=== PATIENT | female | born 1990 | race Two or more races ===

== ENCOUNTER 2023-12-31 08:23 | Emergency (ER) | payer MEDICAID, OTHER ==
[~2023-12-31] VITALS: Ht 157.5 cm; Wt 83.2 kg
[2023-12-31 09:34] LABS: Urine Bacteria None Seen /hpf (None Seen)
[2023-12-31 09:37] LABS: Urine Blood 3+ /uL (Negative); Urine Clarity Clear (Clear); Urine Color Light-Yellow (Yellow); Urine Hyaline Cast FEW /lpf (0 - 2); Urine Mucus FEW (None Seen); Urine Protein, UAD Negative (Negative); Urine Urobilinogen Normal (Negative); Urine WBC 1 /hpf (0 - 5)
[2023-12-31 09:42] LABS: Basophils # (auto) 0.1 10 ^3/uL (0-0.2); Eosinophils # (auto) 0.6 10 ^3/uL (0-0.8); Monocytes # (auto) 0.4 10 ^3/uL (0-1.3)
[2023-12-31 09:44] LABS: Eosinophils % (auto) 6.5 % (0.0-7.0); Hematocrit 31.2 % (36.0-46.0); Hemoglobin 9.7 g/dL (12.2-16.2); Lymphocytes % (auto) 34.4 % (10.0-50.0); Mean Corpuscular Hemoglobin 19.3 pg (28.0-32.0); Mean Corpuscular Hgb Conc. 31.1 g/dL (32.0-36.0); Monocytes % (auto) 4.7 % (0.0-12.0); Neutrophils # (auto) 4.6 10 ^3/uL (1.6-8.6); Neutrophils % (auto) 53.4 % (37.0-80.0); Platelet Count (auto) 603 10^3/uL (140-450); Red Blood Cells 5.03 10^6/uL (4.0-5.20); Red Cell Distribution Width 17.6 % (11.8-14.3); White Blood Cell 8.6 10^3/uL (4.4-10.8)
[2023-12-31 09:52] LABS: Chloride 109 mmol/L (98-107); Potassium 4.1 mmol/L (3.5-5.1); Sodium 140 mmol/L (136-145)
[2023-12-31 09:53] LABS: Anion Gap 6 (5-15); Calcium 9.6 mg/dL (8.7-10.4); Carbon Dioxide 25 mmol/L (20-31)
[2023-12-31 09:58] LABS: BUN/Creatinine Ratio 10.9 (10.0-20.0); Blood Urea Nitrogen 7 mg/dL (9-23); Glucose 99 mg/dL (74-106)
[2023-12-31 09:59] LABS: Magnesium 2.2 mg/dL (1.6-2.6)
[2023-12-31 10:52] LABS: Platelet Estimate Increased
[2023-12-31 10:53] LABS: Hypochromia Marked
[2023-12-31 10:58] VITALS: PULSE 89; RESP 19; O2SAT 98
[2023-12-31 12:51] VITALS: BP 132/72; PULSE 80; RESP 17; TEMP 98.2; O2SAT 99
[2023-12-31] MEDS ORDERED: ACET-6 PO (12:59)
[2023-12-31] MEDS ORDERED: IBUP-1454 PO (12:59)
== END 2023-12-31 13:16 | disposition home or self-care (01) ==
LOC: ER 08:23
DX: B34.9 Viral infection, unspecified (principal); R10.2 Pelvic and perineal pain; M79.10 Myalgia, unspecified site; Z79.899 Other long term (current) drug therapy
CPT/HCPCS: 36415; 71046; 80048; 81001; 83735; 84702; 85025; 93005

== ENCOUNTER 2024-05-20 18:58 | Emergency (ER) | payer MEDICAID ==
[~2024-05-20] VITALS: Ht 165.1 cm; Wt 82.8 kg
[~2024-05-20 18:58] MED LIST: ACET-6 PO; IBUP-1454 PO
[2024-05-20 19:59] LABS: Hemoglobin 9.8 g/dL (12.2-16.2)
[2024-05-20 20:01] LABS: Basophils # (auto) 0.1 10 ^3/uL (0-0.2); Basophils % (auto) 0.9 % (0.0-2.0); Eosinophils # (auto) 0.8 10 ^3/uL (0-0.8); Eosinophils % (auto) 6.5 % (0.0-7.0); Hematocrit 31.7 % (36.0-46.0); Lymphocytes # (auto) 4.3 10 ^3/uL (0.4-5.4); Lymphocytes % (auto) 34.2 % (10.0-50.0); Mean Corpuscular Hgb Conc. 30.9 g/dL (32.0-36.0); Mean Corpuscular Volume 64.6 fL (80.0-100.0); Monocytes # (auto) 0.7 10 ^3/uL (0-1.3); Monocytes % (auto) 5.5 % (0.0-12.0); Neutrophils # (auto) 6.6 10 ^3/uL (1.6-8.6); Neutrophils % (auto) 52.9 % (37.0-80.0); Nucleated Red Blood Cells % 0.1 %; Platelet Count (auto) 551 10^3/uL (140-450); Red Blood Cells 4.91 10^6/uL (4.0-5.20); Red Cell Distribution Width 17.9 % (11.8-14.3); White Blood Cell 12.5 10^3/uL (4.4-10.8)
[2024-05-20 20:07] LABS: Potassium 3.6 mmol/L (3.5-5.1); Sodium 140 mmol/L (136-145)
[2024-05-20 20:08] LABS: Anion Gap 10 (5-15); Calcium 10.1 mg/dL (8.7-10.4); Carbon Dioxide 23 mmol/L (20-31); Chloride 107 mmol/L (98-107)
[2024-05-20 20:11] LABS: Urine Bacteria FEW /hpf (None Seen); Urine Blood Negative /uL (Negative); Urine Clarity Turbid (Clear); Urine Color Colorless (Yellow); Urine Protein, UAD Negative (Negative); Urine Squamous Epithelial Cell FEW /hpf (<5); Urine Urobilinogen Normal (Negative); Urine WBC 4 /HPF (0-5); Urine pH 6.5 (5.0-9.0)
[2024-05-20 20:13] LABS: BUN/Creatinine Ratio 12.3 (10.0-20.0)
[2024-05-20 20:15] LABS: Blood Urea Nitrogen 8 mg/dL (9-23); Glucose 114 mg/dL (74-106)
[2024-05-20] MEDS: SODIUM CHLORIDE 0.9% 1,000 ML IV ONE (20:21)
[2024-05-20] MEDS: MECLIZINE HCL 25 MG TAB PO ONE (20:26)
[2024-05-20 20:28] VITALS: BP 130/76; RESP 18; TEMP 99.3; O2SAT 97
[2024-05-20 20:37] VITALS: PULSE 88
[2024-05-20] MEDS ORDERED: MECL1TAB42 PO (20:37)
--- NOTE | 2024-05-20 20:37 | ED.PDOC ---
HPI (NEURO) HPI Comments 34-year-old female with no pertinent past medical history, presents to ED for dizziness x1 day, with no other associated symptoms. Patient denies any headache, nausea, vomiting, chest pain, shortness of breath, numbness, tingling. She states that the dizziness is intermittent and describes it as a spinning sensation. She states that it is triggered by certain movements. No alleviating or aggravating factors. Patient denies a history of same in the past. Last menstrual period ended 10 days ago. She denies being . Chief Complaint: Dizziness Time Seen by MD: 19:02 Reviewed Notes: Nurses Notes, Medications, Allergies Mode of Arrival: Ambulatory Past Medical History PAST MEDICAL HISTORY: Denies Surgical History: Unknown [employer] TECH[employer] History: Denies all [employer] Hx Family History Family History: Unknown Social History Smoker: Non-Smoker Alcohol: Denies ETOH Use Drugs: Denies Drug Use Constitutional: denies: chills, diaphoresis, fatigue, fever, malaise, sweats, weakness, others EENTM: denies: blurred vision, double vision, ear bleeding, ear discharge, ear drainage, ear pain, ear ringing, eye pain, eye redness, hearing loss, mouth pain, mouth swelling, nasal discharge, nose bleeding, nose congestion, nose pain, photophobia, tearing, throat pain, throat swelling, voice changes, others Respiratory: denies: cough, hemoptysis, orthopnea, SOB at rest, shortness of breath, SOB with excertion, stridor, wheezing, others Cardiovascular: denies: chest pain, dizzy spells, diaphoresis, Dyspnea on exertion, edema, irregular heart beat, left arm pain, lightheadedness, palpitations, PND, syncope, others Gastrointestinal: denies: abdomen distended, abdominal pain, blood streaked bowels, constipated, diarrhea, dysphagia, difficulty swallowing, hematemesis, melena, nausea, poor appetite, poor fluid intake, rectal bleeding, rectal pain, vomiting, others Genitourinary: denies: abnormal vagina bleeding, burning, dyspareunia, dysuria, flank pain, frequency, hematuria, incontinence, pain, , vagina discharge, urgency, others Neurological: reports: dizziness; denies: fainting, headache, left sided numbness, left sided weakness, numbness, paresthesia, pre-existing deficit, right sided numbness, right sided weakness, seizure, speech problems, tingling, tremors, weakness, others Musculoskeletal: denies: back pain, gout, joint pain, joint swelling, muscle pain, muscle stiffness, neck pain, others Integumetry: denies: bruises, change in color, change in hair/nails, dryness, laceration, lesions, lumps, rash, wounds, others Allergic/Immunocompromised: denies: Difficulty Healing, Frequent Infections, Hives, Itching, others Hematologic/Lymphatic: denies: anemia, blood clots, easy bleeding, easy bruising, swollen glands, others Endocrine: denies: excessive hunger, excessive sweating, excessive thirst, excessive urination, flushing, intolerance to cold, intolerance to heat, unexplained weight gain, unexplained weight loss, others Psychiatric: denies: anxiety, bipolar disorder, depression, hopeless, panic disorder, schizophrenia, sleepless, suicidal, others All Other Systems: Reviewed and Negative Physical Exam General Appearance: No Apparent Distress, Normal HEENT: Normal ENT Inspection, Pharynx Normal, TMs Normal Neck: Full Range of Motion, Non-Tender, Normal, Normal Inspection Respiratory: Chest Non-Tender, Lungs Clear, No Accessory Muscle Use, No Respiratory Distress, Normal Breath Sounds Cardiovascular: No Edema, No JVD, No Murmur, No Gallop, Normal Peripheral Pulses, Regular Rate/Rhythm Breast Exam: Deferred Gastrointestinal: No Organomegaly, Non Tender, No Pulsatile Mass, Normal Bowel Sounds, Soft Genitalia: Deferred Pelvic: Deferred Rectal: Deferred Extremities: No calf tenderness, Normal capillary refill, Normal inspection, Normal range of motion, Non-tender, No pedal edema Musculoskeletal : Apperance: Normal Neurologic: Alert, hospital receiving clerk II-XII nml as Tested, No Motor Deficits, Normal Affect, Normal Mood, No Sensory Deficits, Other (5/5 strength in bilateral upper and lower extremities. Negative facial droop, negative pronator drift.) Cerebellar Function: Normal Reflexes: Normal Skin: Dry, Normal Color, Warm Lymphatic: No Adenopathy EKG EKG : Pulse Rate (adult): 88 [place]: Normal Cardiac Rhythm: NSR Block: None Hypertrophy: None ST: Normal Was a procedure done? Was a procedure done?: No Differential Diagnosis (SZ) Seizure: Closed Head Injury, CVA/TIA, Drug Ingestion, Syncope, Encephalopathy CVA: Electrolyte Imbalance General Weakness: CVA, Vertigo: central, Vertigo: peripheral, Vestibular neuronitis X-Ray, Labs, Meds, VS Vital Signs Date Time Temp Pulse Resp B/P (MAP) Pulse Ox O2 Delivery O2 Flow Rate FiO2 05/20/24 20:37 88 05/20/24 20:28 86 18 97 Room Air 05/20/24 20:28 99.3 86 18 130/76 (94) 97 99.3 05/20/24 19:44 88 05/20/24 19:41 98.0 93 16 148/93 (111) 100 98.0 Lab Test 05/20/24 19:58 05/20/24 19:49 Range/Units Urine Color Colorless Yellow Urine Clarity Turbid H Clear Urine pH 6.5 5.0-9.0 Urine Specific [place] 1.010 1.001-1.035 Urine Protein Negative Negative Urine Ketones Negative Negative Urine Blood Negative Negative /uL Urine Nitrite Negative Negative Urine Bilirubin Negative Negative Urine Urobilinogen Normal Negative mg/dL Urine Leukocyte Esterase 1+ Negative /uL Urine RBC <1 0 - 4 /hpf Urine Microscopic WBC 4 0-5 /HPF Urine Squamous Epithelial Cells Few <5 /hpf Urine Bacteria Few H None Seen /hpf Urine Glucose Normal Normal mg/dL Urine Test Negative Negative White Blood Count 12.5 H 4.4-10.8 10^3/uL Red Blood Count 4.91 4.0-5.20 10^6/uL Hemoglobin 9.8 L 12.2-16.2 g/dL Hematocrit 31.7 L 36.0-46.0 % Mean Corpuscular Volume 64.6 L 80.0-100.0 fL Mean Corpuscular Hemoglobin 20.0 L 28.0-32.0 pg Mean Corpuscular Hemoglobin Concent 30.9 L 32.0-36.0 g/dL Red Cell Distribution Width 17.9 H 11.8-14.3 % Platelet Count 551 H 140-450 10^3/uL Mean Platelet Volume 8.0 6.9-10.8 fL Neutrophils (%) (Auto) 52.9 37.0-80.0 % Lymphocytes (%) (Auto) 34.2 10.0-50.0 % Monocytes (%) (Auto) 5.5 0.0-12.0 % Eosinophils (%) (Auto) 6.5 0.0-7.0 % Basophils (%) (Auto) 0.9 0.0-2.0 % Neutrophils # (Auto) 6.6 1.6-8.6 10 ^3/uL Lymphocytes # (Auto) 4.3 0.4-5.4 10 ^3/uL Monocytes # (Auto) 0.7 0-1.3 10 ^3/uL Eosinophils # (Auto) 0.8 0-0.8 10 ^3/uL Basophils # (Auto) 0.1 0-0.2 10 ^3/uL Nucleated Red Blood Cells 0.1 % Sodium Level 140 136-145 mmol/L Potassium Level 3.6 3.5-5.1 mmol/L Chloride Level 107 98-107 mmol/L Carbon Dioxide Level 23 20-31 mmol/L Anion Gap 10 5-15 Blood Urea Nitrogen 8 L 9-23 mg/dL Creatinine 0.65 0.550-1.02 mg/dL Glomerular Filtration Rate Calc 118 >90 mL/min BUN/Creatinine Ratio 12.3 10.0-20.0 Serum Glucose 114 H 74-106 mg/dL Calcium Level 10.1 8.7-10.4 mg/dL Current Medications Medications (Trade) Dose Ordered Sig/Devon Route Start Time Stop Time Status Last Admin Meclizine HCl (Antivert Tablet) 50 mg ONCE ONCE PO 05/20/24 19:45 05/20/24 19:46 DC 05/20/24 20:26 Sodium Chloride 1,000 ml @ 1,000 mls/hr Q1H ONCE IV 05/20/24 20:00 05/20/24 20:59 DC 05/20/24 20:21 X-Ray, Labs, Meds, VS Comment MDM: Patient with history as above presented with Dizziness. History obtained from patient. Patient was nontoxic, stable, afebrile, ambulatory, no acute distress. Exam as above. Labs reviewed.CBC showed mild leukocytosis of 12.5. Anemia was noted for hemoglobin at 9.8 and hematocrit at 31.7. BMP did not show any electrolyte abnormalities. Urinalysis was negative for acute infection. Urine test was negative. EKG was reviewed by me. Normal sinus rhythm at 88 beats per minute, no hypertrophy, no AV blocks, no ST-T wave abnormalities. Reviewed external records. All findings were discussed with the patient. Differential diagnosis considered. Overall presentation is consistent with nonspecific vertigo. Low suspicion for CVA, TIA, cardiac arrhythmia, meningitis. Patient was treated with meclizine and IV fluids with improvement in symptoms. Patient was reevaluated and vital signs were reviewed. Consideration was given for admission, but the patient was stable for outpatient management. Prescribed meclizine for outpatient treatment. Disposition: Discussed the need to follow up diagnostics, including incidental findings. Discharged the patient with instructions to obtain outpatient follow up in 1-2 days of today's symptoms and findings, with strict return precautions if patient develops new or worsening symptoms. This medical document was created using the [employer]ni[employer] system. Although this document has been carefully reviewed, there may still be some phonetic and typographical errors, which are due to imperfections of the software program, and do not reflect any compromise in the patient's medical care. Time of 1ST Reevaluation: 20:35 Reevaluation 1ST: Improved Patient Education/Counseling: Diagnosis, Treatment, Prognosis, Need For Follow Up Family Education/Counseling: No Family Present Departure 1 Departure Time of Disposition: 20:36 Impression: Primary Impression: Vertigo Additional Impression: Anemia Qualified Codes: D50.9 - Iron deficiency anemia, unspecified Disposition: HOME / SELF CARE / HOMELESS Condition: Fair Additional Instructions: You likely have benign vertigo. He also have iron-deficiency anemia. Please follow up with primary care provider for further evaluation. e-Prescriptions Meclizine HCl (Meclizine 25) 25 Mg Tab 25 MG PO DAILY, #30 TAB Prov: FAITH WATKINS 05/20/24 Critical Care Note Critical Care Time?: No Stability Stability form required: No Heart Score Heart Score: Heart Score Response (Comments) Value History N/A 0 EKG N/A 0 Age N/A 0 Risk Factors N/A 0 Troponin N/A 0 Total 0 FAITH WATKINS May 20, 2024 20:37
--- NOTE | 2024-05-21 10:20 | ECG ---
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
== END 2024-05-20 21:23 | disposition home or self-care (01) ==
LOC: ER 18:58
DX: D64.9 Anemia, unspecified (principal); R42 Dizziness and giddiness
CPT/HCPCS: 36415; 80048; 81001; 81025; 85025; 93005; 96360; 99284; J7030; J8597

== ENCOUNTER 2024-06-13 22:52 | Emergency (ER) | payer MEDICAID ==
[~2024-06-13] VITALS: Ht 165.1 cm; Wt 80.9 kg
[~2024-06-13 22:52] MED LIST changes: +MECL1TAB42 PO
--- NOTE | 2024-06-13 23:32 | ED.PDOC ---
General HPI Comments HPI: Poor Historian. 34-year-old female four weeks presents to the emergency department for evaluation of nonspecific low back pain for one day with the associated urinary frequency and urgency. Patient also reports having some nausea but no vomiting with yellow diarrhea for one day but her main complaint today is her low back pain with urinary symptoms. She says her back pain radiates to her legs. Denies cauda equina like symptoms. Denies any recent fall or trauma. Vital signs are stable in triage. Diarrhea for five days. When asked if she can give us a stool sample two days. She said she can not. Past Medical History: Denies any Past Surgical History: Two C sections REVIEW OF SYSTEMS: CONSTITUTIONAL: Denies acute: fever, diaphoresis, chills, generalized weakness. HEAD: Denies acute: headache, photophobia Eyes: Denies acute: Double vision, vision loss, eye pain, eye discharge. EARS: Denies acute: tinnitus, hearing loss, ear discharge, ear pain, THROAT: Denies acute: sore throat, swelling, difficulty swallowing , pain with swallowing, change in voice. NECK: Denies acute: neck pain, neck swelling, stiff neck. HEART: Denies acute : chest pain, palpitations, LUNGS: Denies acute: SOB, wheezing, cough, hemoptysis ABDOMEN: Denies acute: abdominal pain, vomiting, melena , hematemesis, hematochezia SKIN: Denies acute: rash, redness, lesions, itchiness. EXTREMITIES: Denies acute: calf pain, numbness, tingling, weakness, denies pain in extremity. Denies acute: Neuro: Denies acute: focal neurological deficit, motor or sensory focal neurological deficit, tremors, seizure like activity, confusion, dizziness, change in mental status, loss of bowel or bladder function, cauda equina like symptoms. : Denies acute: dysuria, hematuria, flank pain, PSYCH: Denies acute: hallucination, suicidal ideation, homicidal ideation. FEMALE: Denies acute: abnormal vaginal bleeding, foul odor, unusual discharge. PHYSICAL EXAM: General: ----mild----acute distress, awake and alert. Head: normocephalic, atraumatic. Neck: supple, trachea is midline, no swelling. Throat: Normal phonation. Eyes:, no erythema, no purulent discharge, no proptosis, no icterus. Heart: regular rate, regular rhythm, no significant murmur appreciated. Lungs: no apparent respiratory distress, Able to speak in full sentences. No wheezing, no rhonchi, no crackles. No stridors Clear to auscultation bilaterally. Abdomen: non tender to palpation, non distended, soft, no guarding, no rebound, + bowel sounds. Neuro: Awake, Alert, oriented to name, self, situation, follows commands GCS=15. Speech is normal. Skin: no petechia, no purpura, no cyanosis, non-pale, not jaundice. Lower extremities: --no - Pitting edema no deformity, no focal swelling, no calf TTP. Makes eye contact. moves all four extremities. Face: no apparent facial droop. No CVA tenderness to percussion bilaterally. Ambulating in the ED independently. No nystagmus. No nuchal rigidity, Kernig's sign, Brudzinski's sign, no meningeal signs. ED COURSE: Chief Complaint: Back Pain Time Seen by MD: 22:56 Reviewed notes: Nurses Notes, Allergies Allergies: Coded Allergies: NO KNOWN ALLERGIES (Unverified , 12/31/23) Home Meds Active Scripts Ondansetron Odt 4MG Tab (ZOFRAN PO) 4 Mg Tb, 4 MG PO Q8HPRN PRN for 3 Days, #9 TAB ODT TAB-DISSOLVE IN MOUTH, THEN SWALLOW Prov:MARJORIE HERNÁNDEZ DO 06/14/24 Cephalexin Monohydrate (Cephalexin) 500 Mg Tab, 1 TAB PO TID for 5 Days, #15 TAB Prov:MARJORIE HERNÁNDEZ DO 06/14/24 Meclizine HCl (Meclizine 25) 25 Mg Tab, 25 MG PO DAILY, #30 TAB Prov:FAITH WATKINS PAC 05/20/24 Ibuprofen (Ibuprofen) 600 Mg Tab, 1 TAB PO TID for 10 Days, #30 TAB Prov:BO JIANG MD 12/31/23 Acetaminophen (Acetaminophen Extra Stren) 500 Mg Tab, 500 MG PO TID PRN for 10 Days, #30 TAB Prov:BO JIANG MD 12/31/23 Information Source: Patient Mode of Arrival: Ambulatory Past Medical History PAST MEDICAL HISTORY: Denies Surgical History: Unknown PNEUMATIC PRESS HAND History: Denies all PNEUMATIC PRESS HAND Hx Family History Family History: Unknown Social History Smoker: Non-Smoker Alcohol: Denies ETOH Use Drugs: Denies Drug Use Was a procedure done? Was a procedure done?: No Differential Diagnosis Kidney stone (Female): Musculoskeletal pain, Pyelonephritis, Renal failure, Strain, Urinary obstruction, N/A X-Ray, Labs, Meds, VS Vital Signs Date Time Temp Pulse Resp B/P (MAP) Pulse Ox O2 Delivery O2 Flow Rate FiO2 06/14/24 02:11 98.1 84 17 120/76 (91) 99 98.1 06/14/24 02:11 84 17 99 Room Air 06/13/24 23:07 98.6 100 16 131/90 (104) 99 98.6 Lab Test 06/13/24 23:50 06/13/24 23:29 Range/Units White Blood Count 8.6 4.4-10.8 10^3/uL Red Blood Count 4.83 4.0-5.20 10^6/uL Hemoglobin 9.8 L 12.2-16.2 g/dL Hematocrit 31.4 L 36.0-46.0 % Mean Corpuscular Volume 65.0 L 80.0-100.0 fL Mean Corpuscular Hemoglobin 20.4 L 28.0-32.0 pg Mean Corpuscular Hemoglobin Concent 31.4 L 32.0-36.0 g/dL Red Cell Distribution Width 20.1 H 11.8-14.3 % Platelet Count 444 140-450 10^3/uL Mean Platelet Volume 7.9 6.9-10.8 fL Neutrophils (%) (Auto) 63.0 37.0-80.0 % Lymphocytes (%) (Auto) 23.8 10.0-50.0 % Monocytes (%) (Auto) 9.6 0.0-12.0 % Eosinophils (%) (Auto) 3.1 0.0-7.0 % Basophils (%) (Auto) 0.5 0.0-2.0 % Neutrophils # (Auto) 5.4 1.6-8.6 10 ^3/uL Lymphocytes # (Auto) 2.1 0.4-5.4 10 ^3/uL Monocytes # (Auto) 0.8 0-1.3 10 ^3/uL Eosinophils # (Auto) 0.3 0-0.8 10 ^3/uL Basophils # (Auto) 0 0-0.2 10 ^3/uL Nucleated Red Blood Cells 0.0 % Sodium Level 138 136-145 mmol/L Potassium Level 3.9 3.5-5.1 mmol/L Chloride Level 106 98-107 mmol/L Carbon Dioxide Level 22 20-31 mmol/L Anion Gap 10 5-15 Blood Urea Nitrogen 8 L 9-23 mg/dL Creatinine 0.63 0.550-1.02 mg/dL Glomerular Filtration Rate Calc 119 >90 mL/min BUN/Creatinine Ratio 12.7 10.0-20.0 Serum Glucose 99 74-106 mg/dL Lactic Acid Level 0.9 0.4-2.0 mmol/L Calcium Level 9.9 8.7-10.4 mg/dL Total Bilirubin 0.2 0.2-1.0 mg/dL Aspartate Amino Transferase (AST) 10 L 13-40 U/L Alanine Aminotransferase (ALT) 17 7-40 U/L Alkaline Phosphatase 63 46-116 U/L Total Protein 7.8 5.7-8.2 g/dL Albumin 5.0 H 3.2-4.8 g/dL Beta HCG, Quantitative 23093.2 H 1.5-4.2 mIU/mL Urine Color Colorless Yellow Urine Clarity Clear Clear Urine pH 5.0 5.0-9.0 Urine Specific [place] 1.008 1.001-1.035 Urine Protein Negative Negative Urine Ketones Negative Negative Urine Blood Negative Negative /uL Urine Nitrite Negative Negative Urine Bilirubin Negative Negative Urine Urobilinogen Normal Negative mg/dL Urine Leukocyte Esterase Negative Negative /uL Urine RBC <1 0 - 4 /hpf Urine Microscopic WBC 1 0-5 /HPF Urine Squamous Epithelial Cells Few <5 /hpf Urine Bacteria Few H None Seen /hpf Urine Glucose Normal Normal mg/dL Urine Opiates Screen Neg NEGATIVE Urine Fentanyl Screen Neg NEGATIVE Urine Barbiturates Screen Neg NEGATIVE Urine Phencyclidine Screen Neg NEGATIVE Urine Amphetamines Screen Neg NEGATIVE Urine Benzodiazepines Screen Neg NEGATIVE Urine Cocaine Screen Neg NEGATIVE Urine Cannabinoids Screen Neg NEGATIVE Current Medications Medications (Trade) Dose Ordered Sig/Devon Route Start Time Stop Time Status Last Admin Sodium Chloride 500 ml @ 500 mls/hr Q1H ONCE IV 4/16/25 23:30 06/14/24 00:29 DC 06/14/24 02:23 Acetaminophen/ Hydrocodone Bitart ([place] 5/325MG Tab) 1 tab ONCE ONCE PO 06/13/24 23:45 06/13/24 23:46 DC 06/14/24 02:24 Time of 1ST Reevaluation: 01:09 Reevaluation 1ST: Unchanged Time of 2ND Reevaluation: 02:34 Reevaluation 2ND: Improved Patient Education/Counseling: Diagnosis, Treatment Family Education/Counseling: No Family Present Comments Patient presented with the above HPI.--urinary symptoms and low back pain and diarrhea----workup was initiated. patient was found with the above mentioned diagnosis. the following medications were ordered: please refer to order lists of meds and tests obtained by myself Dr. Hernández. Patient ED course and VS have been stabilized. Patient has been reassessed in the ED and remained in a stable condition. Pertinent incidental findings were discussed with the patient and/or family. Patient/family voices understanding and is agreeable with plan. Patient has been observed in the ED adequate length of time to insure improvement/stability. Escalation of care considered: Consideration of escalation to observation or admission Patient was DISCHARGED home in a stable condition. All the reports of any imaging studies that were ordered by myself were reviewed by myself. Departure 1 Departure Time of Disposition: 01:07 Impression: Primary Impression: Bacteria in urine Additional Impressions: UTI in Diarrhea Anemia Disposition: 01 HOME / SELF CARE / HOMELESS Condition: Stable Additional Instructions: Additional instructions: You MUST follow-up with your primary care/family doctor in 1 to 2 days. If you are unable to see your primary care/family doctor, please return to our emergency room for re-assessment and re-evaluation in 1 to 2 days. Return to the emergency room here in our facility or to the nearest ER [facility] if your symptoms change or worsen. CONSULTATIONS: you MUST Follow-up for consultation as soon as possible with: Dr. STERLING Parisi doctor in 1-2 day history of please call for appointment. You MUST call the consultants office yourself to make an appointment. You may need to arrange that through your insurance and/or your primary/family doctor. If you are unable to see the [facility] consultant in 1 to 2 days, you must return to our emergency room (or any other ER of your choice) for re-assessment and re- evaluation. Adequate fluid hydration. Pelvic rest. Continue taking daily vitamins. Use Tylenol [id number] as instructed for pain control. Take iron supplements. Below is a copy of your radiological report for follow up: e-Prescriptions Ondansetron Odt 4MG Tab (ZOFRAN PO) 4 Mg Tb 4 MG PO Q8HPRN PRN for 3 Days, #9 TAB ODT TAB-DISSOLVE IN MOUTH, THEN SWALLOW Prov: MARJORIE HERNÁNDEZ DO 06/14/24 Cephalexin Monohydrate (Cephalexin) 500 Mg Tab 1 TAB PO TID for 5 Days, #15 TAB Prov: MARJORIE HERNÁNDEZ DO 06/14/24 Discharged With: Self Critical Care Note Critical Care Time?: No Heart Score Heart Score: Heart Score Response (Comments) Value History N/A 0 EKG N/A 0 Age N/A 0 Risk Factors N/A 0 Troponin N/A 0 Total 0 MARJORIE HERNÁNDEZ DO Jun 13, 2024 23:32
[2024-06-13 23:52] LABS: Urine Bacteria FEW /hpf (None Seen); Urine Blood Negative /uL (Negative); Urine Clarity Clear (Clear); Urine Color Colorless (Yellow); Urine Protein, UAD Negative (Negative); Urine Specific Gravity 1.008 (1.001-1.035); Urine Squamous Epithelial Cell FEW /hpf (<5); Urine Urobilinogen Normal (Negative); Urine WBC 1 /HPF (0-5)
[2024-06-14 00:01] LABS: Basophils # (auto) 0 10 ^3/uL (0-0.2); Basophils % (auto) 0.5 % (0.0-2.0); Eosinophils # (auto) 0.3 10 ^3/uL (0-0.8); Monocytes # (auto) 0.8 10 ^3/uL (0-1.3)
[2024-06-14 00:02] LABS: Eosinophils % (auto) 3.1 % (0.0-7.0); Hematocrit 31.4 % (36.0-46.0); Hemoglobin 9.8 g/dL (12.2-16.2); Lymphocytes # (auto) 2.1 10 ^3/uL (0.4-5.4); Lymphocytes % (auto) 23.8 % (10.0-50.0); Mean Corpuscular Hemoglobin 20.4 pg (28.0-32.0); Mean Corpuscular Hgb Conc. 31.4 g/dL (32.0-36.0); Monocytes % (auto) 9.6 % (0.0-12.0); Neutrophils # (auto) 5.4 10 ^3/uL (1.6-8.6); Platelet Count (auto) 444 10^3/uL (140-450); Red Blood Cells 4.83 10^6/uL (4.0-5.20); Red Cell Distribution Width 20.1 % (11.8-14.3); White Blood Cell 8.6 10^3/uL (4.4-10.8)
[2024-06-14 00:14] LABS: Amphetamine Screen, Urine Neg (NEGATIVE); Barbiturate Scree,Urine Neg (NEGATIVE); Benzodiazephine Screen, Urine Neg (NEGATIVE); Cannabinoid Screen, Urine Neg (NEGATIVE); Cocaine Screen, Urine Neg (NEGATIVE); Opiate Scree,Urine Neg (NEGATIVE); Phencyclidine Screen, Urine Neg (NEGATIVE)
[2024-06-14 00:20] LABS: Alanine Aminotransferase 17 U/L (7-40); Alkaline Phosphatase 63 U/L (46-116); Anion Gap 10 (5-15); BUN/Creatinine Ratio 12.7 (10.0-20.0); Calcium 9.9 mg/dL (8.7-10.4); Carbon Dioxide 22 mmol/L (20-31); Chloride 106 mmol/L (98-107); Glucose 99 mg/dL (74-106); Potassium 3.9 mmol/L (3.5-5.1); Sodium 138 mmol/L (136-145); Total Protein 7.8 g/dL (5.7-8.2)
[2024-06-14 00:50] LABS: Aspartate Aminotransferase 10 U/L (13-40); Bilirubin, Total 0.2 mg/dL (0.2-1.0); Blood Urea Nitrogen 8 mg/dL (9-23)
[2024-06-14] MEDS ORDERED: ZOFR4T PO (01:08)
[2024-06-14] MEDS ORDERED: CEPH500T PO (01:08)
[2024-06-14 02:11] VITALS: BP 120/76; PULSE 84; RESP 17; TEMP 98.1; O2SAT 99
[2024-06-14] MEDS: SODIUM CHLORIDE 0.9% 500 ML IV ONE (02:23)
[2024-06-14] MEDS: HYDROcodone-ACET 5/325MG TAB PO ONE (02:24)
[2024-06-14] MEDS: ONDANSETRON HCL 4 MG/2 ML VIAL IV ONE (02:43)
[2024-06-14] MEDS: cefTRIAXone 1GM/50ML D5W 50 ML IV ONE (02:43)
== END 2024-06-14 03:54 | disposition home or self-care (01) ==
LOC: ER 22:52
DX: N39.0 Urinary tract infection, site not specified (principal); R82.71 Bacteriuria; R19.7 Diarrhea, unspecified; O20.0 Threatened abortion; D64.9 Anemia, unspecified; Z79.899 Other long term (current) drug therapy
CPT/HCPCS: 36415; 80053; 80307; 81001; 83605; 84702; 85025; 96365; 96375; 99284; J0696; J2405; J7030

== ENCOUNTER → 2024-06-18 | Outpatient (CLI) | payer MEDICAID ==
[~2024-06-18] MED LIST changes: +CEPH500T PO; +ZOFR4T PO
[2024-06-18 10:04] LABS: Basophils # (auto) 0 10 ^3/uL (0-0.2); Basophils % (auto) 0.5 % (0.0-2.0); Hematocrit 33.5 % (36.0-46.0)
[2024-06-18 10:06] LABS: Eosinophils # (auto) 0.5 10 ^3/uL (0-0.8); Eosinophils % (auto) 6.7 % (0.0-7.0); Hemoglobin 10.5 g/dL (12.2-16.2); Lymphocytes # (auto) 3.4 10 ^3/uL (0.4-5.4); Lymphocytes % (auto) 43.8 % (10.0-50.0); Mean Corpuscular Hemoglobin 20.5 pg (28.0-32.0); Mean Corpuscular Hgb Conc. 31.3 g/dL (32.0-36.0); Mean Corpuscular Volume 65.3 fL (80.0-100.0); Monocytes # (auto) 0.4 10 ^3/uL (0-1.3); Monocytes % (auto) 5.8 % (0.0-12.0); Neutrophils # (auto) 3.3 10 ^3/uL (1.6-8.6); Neutrophils % (auto) 43.2 % (37.0-80.0); Nucleated Red Blood Cells % 0.1 %; Platelet Count (auto) 443 10^3/uL (140-450); Red Blood Cells 5.12 10^6/uL (4.0-5.20); White Blood Cell 7.7 10^3/uL (4.4-10.8)
[2024-06-18 11:10] LABS: Urine Bacteria FEW /hpf (None Seen); Urine Blood Negative /uL (Negative); Urine Clarity Clear (Clear); Urine Color Yellow (Yellow); Urine Mucus FEW (None Seen); Urine Protein, UAD Negative (Negative); Urine Specific Gravity 1.024 (1.001-1.035); Urine Squamous Epithelial Cell FEW /hpf (<5); Urine Urobilinogen Normal (Negative); Urine WBC 1 /HPF (0-5); Urine pH 5.5 (5.0-9.0)
[2024-06-18 11:23] LABS: Alanine Aminotransferase 17 U/L (7-40); Alkaline Phosphatase 60 U/L (46-116); Anion Gap 8 (5-15); BUN/Creatinine Ratio 9.7 (10.0-20.0); Calcium 9.9 mg/dL (8.7-10.4); Carbon Dioxide 24 mmol/L (20-31); Chloride 104 mmol/L (98-107); Glucose 99 mg/dL (74-106); LDL Cholesterol 84 mg/dL (< 100); Potassium 4.2 mmol/L (3.5-5.1); Sodium 136 mmol/L (136-145); Triglycerides 95 mg/dL (< 150)
[2024-06-18 11:24] LABS: Aspartate Aminotransferase 14 U/L (13-40); Bilirubin, Total 0.4 mg/dL (0.2-1.0); Cholesterol 141 mg/dL (< 200); HDL Cholesterol 48 mg/dL (40-59)
[2024-06-18 11:31] LABS: Blood Urea Nitrogen 6 mg/dL (9-23)
[2024-06-18 11:32] LABS: Albumin 4.9 g/dL (3.2-4.8)
== END | disposition home or self-care (01) ==
LOC: LAB 09:26
PROVIDERS: ATTEND Internal Medicine
DX: Z00.00 Encounter for general adult medical examination without abnormal findings (principal)
CPT/HCPCS: 36415; 80053; 80061; 81001; 83036; 84443; 85025

== ENCOUNTER → 2024-06-28 | Outpatient (CLI) | payer MEDICAID ==
[2024-06-28 11:32] LABS: % Iron Saturation 6.8 % (15-50)
[2024-06-28 12:55] LABS: Creatinine, Urine 65.95 mg/dL (30.0-125.0)
[2024-06-28 12:57] LABS: Micro Albumin < 3.0 mg/L (<30.0)
== END | disposition home or self-care (01) ==
LOC: LAB 10:46
PROVIDERS: ATTEND Internal Medicine
DX: D64.9 Anemia, unspecified (principal); R73.03 Prediabetes
CPT/HCPCS: 36415; 82043; 82570; 82728; 83036; 83540; 83550

== ENCOUNTER → 2024-07-17 | Outpatient (CLI) | payer MEDICAID | END | disposition home or self-care (01) | LOC: LAB 09:15 | PROVIDERS: ATTEND Obstetrics & Gynecology | DX: O23.40 Unspecified infection of urinary tract in pregnancy, unspecified trimester (principal); Z31.430 Encounter of female for testing for genetic disease carrier status for procreative management; Z20.09 Contact with and (suspected) exposure to other intestinal infectious diseases; N39.0 Urinary tract infection, site not specified; Z3A.00 Weeks of gestation of pregnancy not specified | CPT/HCPCS: 82951 ==

== ENCOUNTER 2024-11-14 10:42 | Observation (INO) | payer MEDICAID ==
[~2024-11-14] VITALS: Ht 160 cm; Wt 85.0 kg
[2024-11-14 10:46] VITALS: BP 124/86; PULSE 100; RESP 16; TEMP 97.8; O2SAT 100
[2024-11-14] MEDS ORDERED: PREN-96 PO (12:03)
--- NOTE | 2024-11-16 16:34 | DVHDS2 ---
Physician Discharge Progress N Final Diagnosis: rectal bleeding hemorroid 27wks Operations or Procedures: Operations or Procedures nst reactive reviwed,sono Condition on Discharge: Good Disposition: Home Discharge Instructions: Diet: Regular Activity: No Restrictions, As Tolerated Follow Up/Referral: Please follow up with Dr. Webster Medications: na Follow Up Care: Specialist: 1w Discharge Statement: "Patient was advised to return to the ER or call 911 if any headaches, dizziness , shortness of breath, chest pain, abdominal pain, bleeding, fevers, or worsening of medical condition. Patient was counseled about treatment plan, medications, possible side effects, patientverbalized understanding. All questions were answered to the best of my ability. This discharge took greater then 30 minutes in planning, reviewing documentation, counseling the patient, and discussing with other team members." Visit Coding OBGYN Date of Service: Nov 14, 2024 Billing Provider: VU WEBSTER DO CORPORATE MANAGER Common Visit Codes: 45409-[id number] OBS CARE (HIGH) CORPORATE MANAGER Procedure Codes: 90932-14- NON-STRESS TEST VU WEBSTER DO Nov 16, 2024 16:34
== END 2024-11-14 12:16 | disposition home or self-care (01) ==
LOC: ER 10:42 → LDRP 11:05
PROVIDERS: ADMIT Obstetrics & Gynecology; ATTEND Obstetrics & Gynecology
DX: O26.892 Other specified pregnancy related conditions, second trimester (principal); K62.5 Hemorrhage of anus and rectum; Z3A.27 27 weeks gestation of pregnancy; Z98.890 Other specified postprocedural states
CPT/HCPCS: 81002; G0378

== ENCOUNTER 2024-12-17 08:58 | Observation (INO) | payer MEDICAID ==
[~2024-12-17] VITALS: Ht 153 cm; Wt 86.2 kg
[~2024-12-17 08:58] MED LIST changes: +PREN-96 PO
--- NOTE | 2024-12-17 09:45 | DVH ---
BIOPHYSICAL PROFILE HISTORY: GDMA2 TECHNIQUE: Multiple transabdominal real-time grayscale sonographic images through the gravid uterus of the fetus with duplex Doppler color flow and M-mode spectral analysis FINDINGS: BIOPHYSICAL PROFILE: breathing score: 2 movement score: 2 tone score: 2 Quantitative LUCAS score: 2 (LUCAS: 18.4 Cm.) Total score: 8 The cervix not visualized. Single live fetus in cephalic presentation. heart rate 140 beats per minute. Posterior placenta without previa or abruption IMPRESSION: Biophysical profile score: 8
[2024-12-17] MEDS ORDERED: ASPI-498 OR (10:11)
[2024-12-17] MEDS ORDERED: LEVEMIR SC (10:11)
--- NOTE | 2024-12-17 15:12 | DVHDS2 ---
Discharge Summary Date of Admission Dec 17, 2024 at 08:58 Date of Discharge: Dec 17, 2024 Admitting Diagnosis Thirty-two week GDM A2 here for routine Wounds: None Labs/Diagnostic Data: Laboratory Results Test 12/17/24 09:39 POC Glucose 95 mg/dl (70-106) Brief Hx & Hospital Course: NST BPP performed reassuring Consults/Reason for consult None Operations or Procedures NST BPP only Condition at Discharge: Good Final Diagnosis/Problems List 32 week GDM A2 reassuring Discharge Disposition: Home Discharge Instruct/Medications Diet: Consistent carbohydrate Activity: Light activity Activity comment: Kick counts labor precautions comprehend hydrate precautions Follow Up/Referral: As scheduled for routine BPP NST Scheduled Cephalexin Monohydrate (Cephalexin), 1 TAB PO TID Ibuprofen (Ibuprofen), 1 TAB PO TID Meclizine HCl (Meclizine 25), 25 MG PO DAILY Vit W/ Ferrous Fumara ( One Daily), 1 TAB PO DAILY, (Reported) Scheduled PRN Acetaminophen (Acetaminophen Extra Stren), 500 MG PO TID PRN Ondansetron Odt 4MG Tab (Zofran Po), 4 MG PO Q8HPRN PRN Miscellaneous Medications Aspirin (Aspirin 81), 81 MG OR, (Reported) Insulin Detemir (Levemir), 18 SC, (Reported) Discharge Statement: "Patient was advised to return to the ER or call 911 if any headaches, dizziness, shortness of breath, chest pain, abdominal pain, bleeding, fevers, or worsening of medical condition. Patient was counseled about treatment plan, medications, possible side effects, patientverbalized understanding. All questions were answered to the best of my ability. This discharge took greater then 30 minutes in planning, reviewing document ation, counseling the patient, and discussing with other team members." ASSESSMENT ASSESSMENT Assessment Visit Coding OBGYN Date of Service: Dec 17, 2024 Billing Provider: KAYLENE LUGO DO CORE DRILLER HELPER Common Visit Codes: 37178-KXK/OBS SAME DATE (LOW), 96528-JSD/OBS SAME DATE (MOD), 99925-WJF/OBS SAME DATE (HIGH) CORE DRILLER HELPER Procedure Codes: 98092-83- NON-STRESS TEST KAYLENE LUGO DO Dec 17, 2024 15:12
== END 2024-12-17 10:21 | disposition home or self-care (01) ==
LOC: LDRP 08:58
PROVIDERS: ADMIT Obstetrics & Gynecology; ATTEND Obstetrics & Gynecology
DX: O24.419 Gestational diabetes mellitus in pregnancy, unspecified control (principal); Z3A.32 32 weeks gestation of pregnancy; Z98.890 Other specified postprocedural states
CPT/HCPCS: 59025; 76819; 81002; 82948; 82962; 94760; G0378

== ENCOUNTER 2024-12-20 06:55 | Observation (INO) | payer MEDICAID ==
[~2024-12-20] VITALS: Ht 157.5 cm; Wt 81.6 kg
[~2024-12-20 06:55] MED LIST changes: +ASPI-498 OR; +LEVEMIR SC
--- NOTE | 2024-12-20 11:57 | DVH ---
BIOPHYSICAL PROFILE HISTORY: gdma2 TECHNIQUE: Multiple transabdominal real-time grayscale sonographic images through the gravid uterus of the fetus with duplex Doppler color flow and M-mode spectral analysis FINDINGS: BIOPHYSICAL PROFILE: breathing score: 2 movement score: 2 tone score: 2 Quantitative LUCAS score: 2 (LUCAS: 17.6 Cm.) Total score: 8 The cervix was not seen Single live fetus in cephalic presentation. heart rate 156 beats per minute. Grade I posterior placenta without previa or abruption IMPRESSION: Biophysical profile score: 8/8
[2024-12-20] MEDS: TERBUTALINE SULFATE 1 MG/ML 1ML VIAL SC ONE (12:15)
[2024-12-20 12:24] LABS: Hematocrit 30.9 % (36.0-46.0); Hemoglobin 9.9 g/dL (12.2-16.2); Mean Corpuscular Hemoglobin 22.4 pg (28.0-32.0); Mean Corpuscular Volume 70.0 fL (80.0-100.0); Nucleated Red Blood Cells % 0.1 %
[2024-12-20 12:37] LABS: Albumin 4.0 g/dL (3.2-4.8); Anion Gap 11 (5-15); BUN/Creatinine Ratio 14.0 (10.0-20.0); Bilirubin, Total 0.3 mg/dL (0.2-1.0); Calcium 9.2 mg/dL (8.7-10.4); Carbon Dioxide 21 mmol/L (20-31); Chloride 105 mmol/L (98-107); Glucose 75 mg/dL (74-106); Potassium 3.8 mmol/L (3.5-5.1); Sodium 137 mmol/L (136-145); Total Protein 7.3 g/dL (5.7-8.2); Uric Acid 3.1 mg/dL (3.1-7.8)
[2024-12-20 12:38] LABS: Alanine Aminotransferase < 9 U/L (7-40); Alkaline Phosphatase 142 U/L (46-116); Blood Urea Nitrogen 6 mg/dL (9-23)
[2024-12-20] MEDS: TERBUTALINE SULFATE 1 MG/ML 1ML VIAL SC SCH (12:38)
[2024-12-20 12:40] LABS: INR 0.98 (0.9-1.15); Partial Thromboplastin Time 23.5 SEC (24.5-34.5); Prothrombin Time 10.4 sec (9.3-11.8)
[2024-12-20 12:53] LABS: Urine Protein, UAD Negative (Negative)
[2024-12-20] MEDS: BETAMETHASONE ACET (30mg/5ml) 5ml Vial 6mg/ml IM ONE (13:08)
[2024-12-20 13:18] LABS: Protein, Urine 14.1 mg/dL (1-14)
--- NOTE | 2024-12-20 13:27 | DVH ---
OB ULTRASOUND COMPLETE: HISTORY: cervical length TECHNIQUE: Multiple real-time grayscale images of the gravid uterus with duplex Doppler color flow an d M-mode spectral analysis. FINDINGS: heart rate 142 beats per minute. Cervical length 4.2 cm. IMPRESSION: Cervix appears closed. Cervical length measures 4.2 cm.
[2024-12-20 13:29] LABS: Amphetamine Screen, Urine Neg (NEGATIVE); Barbiturate Scree,Urine Neg (NEGATIVE); Benzodiazephine Screen, Urine Neg (NEGATIVE); Cannabinoid Screen, Urine Neg (NEGATIVE); Cocaine Screen, Urine Neg (NEGATIVE); Opiate Scree,Urine Neg (NEGATIVE); Phencyclidine Screen, Urine Neg (NEGATIVE)
--- NOTE | 2024-12-21 08:23 | DVHDS2 ---
Physician Discharge Progress N Final Diagnosis: pih,ptl 32wks Operations or Procedures: Operations or Procedures nst reactive reviwedmaiao Condition on Discharge: Good Disposition: Home Discharge Instructions: Diet: Consistent carbohydrate Activity: Light activity Medications: na Follow Up Care: Specialist: 1d Discharge Statement: "Patient was advised to return to the ER or call 911 if any headaches, dizziness, shortness of breath, chest pain, abdominal pain, bleeding, fevers, or worsening of medical condition. Patient was counseled about treatment plan, medications, possible side effects, patientverbalized understanding. All questions were answered to the best of my ability. This discharge took greater then 30 minutes in planning, reviewing docum entation, counseling the patient, and discussing with other team members." Visit Coding OBGYN Date of Service: Dec 20, 2024 Billing Provider: VU MC DO HARNESS REPAIRER Common Visit Codes: 93669-YHFVDCK INP/OBS CARE (HIGH) HARNESS REPAIRER Procedure Codes: 06023-OYL.SURG: W/FIMBRIOPLASTY, 40212-72- NON- STRESS TEST VU MC DO Dec 21, 2024 08:23
== END 2024-12-20 13:35 | disposition home or self-care (01) ==
LOC: LDRP 10:42 → UNDOADMOB 10:42 → LDRP 10:51
PROVIDERS: ADMIT Obstetrics & Gynecology; ATTEND Obstetrics & Gynecology
DX: O13.3 Gestational [pregnancy-induced] hypertension without significant proteinuria, third trimester (principal); O60.03 Preterm labor without delivery, third trimester; Z3A.32 32 weeks gestation of pregnancy; Z79.899 Other long term (current) drug therapy; Z98.890 Other specified postprocedural states
CPT/HCPCS: 36415; 59025; 76815; 76819; 80053; 80307; 81001; 81002; 82570; 82948; 82962; 84156; 84550; 85025; 85610; 85730; 94760; 96372; G0378; J0702; J3105

== ENCOUNTER 2024-12-21 05:46 | Observation (INO) | payer MEDICAID ==
[2024-12-21] MEDS: BETAMETHASONE ACET (30mg/5ml) 5ml Vial 6mg/ml IM ONE (19:00)
--- NOTE | 2024-12-22 01:33 | DVHDS2 ---
Physician Discharge Progress N Final Diagnosis: second dose of betamethasone with IUP at 32w5d Not in labor Operations or Procedures: Operations or Procedures SUBJECTIVE Renata Ramires is a 34 yo with IUP at 32w5d presenting for scheduled NST and second dose of betamethasone Feels occasional back pain, denies vaginal bleeding, and denies leaking fluid. Endorses positive movement. EDC: 02/11/2025 Review of Systems: Neuro: No complaints Heart: No complaints Lungs: No complaints GI: No complaints : No complaints Skin: No complaints Extremities: No complaints OBJECTIVE VSS FHR: Baseline: 145 Variability: Moderate Accelerations: Present Decelerations: Absent Category: 1 UCs: none noted Neuro: A&O x4. No apparent distress. Affect appropriate Heart: Regular rate and rhythm Lungs: Clear bilaterally GI: Gravid. No tenderness Skin: Dry and intact. No rashes or lesions ASSESSMENT 34 yo at 32w5d Category 1 Tracing PLAN -Second dose of betamethasone IM given to patient -PO hydrated patient. -Discussed labor precautions and kick counts. Answered all patient questions and concerns. Patient verbalizes understanding. Condition on Discharge: Good Disposition: Home Discharge Instructions: Diet: Regular Activity: No Restrictions, As Tolerated Medications: no change Follow Up Care: Discharge Statement: "Patient was advised to return to the ER or call 911 if any headaches, dizziness, shortness of breath, chest pain, abdominal pain, bleeding, fevers, or worsening of medical condition. Patient was counseled about treatment plan, medications, possible side effects, patientverbalized understanding. All questions were answered to the best of my ability. This discharge took greater then 30 minutes in planning, reviewing documentation, counseling the patient, and discussing with other team members." Visit Coding OBGYN Date of Service: Dec 22, 2024 Billing Provider: YARIEL THORPE CNM PENSION MANAGER Common Visit Codes: 09708-UQPCEIT INP/OBS CARE (MOD) PENSION MANAGER Procedure Codes: 23661-26- NON-STRESS TEST YARIEL THORPE CNM Dec 22, 2024 01:33
== END 2024-12-21 20:08 | disposition home or self-care (01) ==
LOC: LDRP 18:41
PROVIDERS: ADMIT Obstetrics & Gynecology; ATTEND Obstetrics & Gynecology
DX: O99.891 Other specified diseases and conditions complicating pregnancy (principal); M54.9 Dorsalgia, unspecified; Z3A.32 32 weeks gestation of pregnancy; Z79.899 Other long term (current) drug therapy; Z98.890 Other specified postprocedural states
CPT/HCPCS: 59025; 81002; 82948; 82962; 94760; 96372; G0378

== ENCOUNTER 2024-12-22 18:12 | Observation (INO) | payer MEDICAID ==
[~2024-12-22] VITALS: Ht 152.4 cm; Wt 86.2 kg
--- NOTE | 2024-12-22 19:38 | DVH ---
EXAM: US BIOPHYSICAL PROFILE HISTORY: DECREASED MOVEMENT COMPARISON: US OBSTERICAL LIMITED on DOS: 12/20/24 TECHNIQUE: Transabdominal and endovaginal real time esqueda scale, color, and doppler evaluation. Perman ent images are maintained in the patient record. FINDINGS: Normal biophysical profile score 8/8. heart rate 150 beats per minute. Posterior placenta loca tion. Grade 1 placenta. Cephalic presentation. Amniotic fluid index 18.8 cm. Cervix measures 3.8 cm and appears closed. IMPRESSION: 1. Normal biophysical profile score.
--- NOTE | 2024-12-22 21:35 | DVHDS2 ---
Physician Discharge Progress N Final Diagnosis: [id number] 32w 5d Normal BPP Reactive NST Membranes Intact Operations or Procedures: Operations or Procedures S: 34yo G4,3003 with EDC of 02/11/25, EGA 32w 5d presents to the Place with the report of decreased movements, and possible leakage of fluids, back pain, cramping; pain rated at 2/10. no VB, MOREAU, vision changes or epigastric pain. No urinary symptoms Receiving PNC at [facility] [place] Has GDMA2 PMH is unremarkable. Reports previous C- section x2 She reports no toxic habit or IPV. Lives with partner and their son. ROS: Neurological: Unremarkable except as noted in Presenting problem/ CC above Respiratory: reports no respiratory symptom, no SOB Cardiovascular: no palpitation, chest pain or easy fatigue : No vaginal or urinary symptom O: PE: A&O x3, NAD, well groomed. pleasant. Appropriate and normal mood and affect Afebrile, VSS Respiration unlabored Heart and lungs sounds: normal Abdomen: Gravid, non-tender to palpation. Cephalic presentation Extremities: No edema Amniosure neg VE: by RN: close/thick/high UA: Neg for nitrites and leukocyte, BPP 8/8 EFM: Tocometer: No contractions noted, none palpable, abdomen soft US: FHR baseline 150bpm with moderate variability and accelerations, no deceleration A: IUP at 32w 5d Normal BPP Reactive NST GDMA2 P: Discharge home Keep appointment with OB provider as scheduled on Educated on Kick counts, need for adequate hydration - advised to increase d water intake Return for testing on 12/24/24; seek care sooner if needed 3rd trimester emergency S&S [facility], labor & pre-eclampsia precautions reviewed with pt; advised to seek health care if any Condition on Discharge: Good Disposition: Home Discharge Instructions: Diet: See Comment Diet comment: GDMA 2 diet as directed by provider Activity: See Comment Activity comment: PELVIC REST Follow Up/Referral: Return for testing on 12/24/24 Medications: Continue current home medications Follow Up Care: Discharge Statement: Pt educated on > 3rd trimester emergency S&S, advised to seek health care if any > [facility] > labor & pre-eclampsia precautions, > need for pelvic rest reviewed with pt; "Patient was advised to return to the ER or call 911 if any headaches, dizziness, shortness of breath, chest pain, abdominal pain, bleeding, fevers, or worsening of medical condition. Patient was counseled about treatment plan, medications, possible side effects, patientverbalized understanding. All questions were answered to the best of my ability. This discharge took greater then 30 minutes in planning, reviewing documentation, counseling the patient, and discussing with other team members." Visit Coding OBGYN Date of Service: Dec 22, 2024 Billing Provider: RICHARDSON MCCRAY CNM BEATER MACHINE OPERATOR Common Visit Codes: 75582-AQS/OBS SAME DATE (HIGH) BEATER MACHINE OPERATOR Procedure Codes: 08295-96- NON-STRESS TEST RICHARDSON MCCRAY CNM Dec 22, 2024 21:35
== END 2024-12-22 20:13 | disposition home or self-care (01) ==
LOC: LDRP 18:12
PROVIDERS: ADMIT Obstetrics & Gynecology; ATTEND Obstetrics & Gynecology
DX: O24.419 Gestational diabetes mellitus in pregnancy, unspecified control (principal); Z3A.32 32 weeks gestation of pregnancy; Z79.899 Other long term (current) drug therapy; Z98.890 Other specified postprocedural states
CPT/HCPCS: 59025; 76819; 81002; 82948; 82962; 84112; G0378

== ENCOUNTER 2024-12-24 10:51 | Observation (INO) | payer MEDICAID ==
[~2024-12-24] VITALS: Ht 153 cm; Wt 86.2 kg
--- NOTE | 2024-12-24 11:48 | DVH ---
BIOPHYSICAL PROFILE HISTORY: GDMA2/PTL TECHNIQUE: Multiple transabdominal real-time grayscale sonographic images through the gravid uterus of the fetus with duplex Doppler color flow and M-mode spectral analysis FINDINGS: BIOPHYSICAL PROFILE: breathing score: 2 movement score: 2 tone score: 2 Quantitative LUCAS score: 2 (LUCAS: 16.1 Cm MVP : 6.1 cm.) Total score: 8/8 The cervix measures 4.4 cm long and appears closed Single live fetus in cephalic presentation. heart rate 151 beats per minute. Posterior Grade to placenta without previa or abruption Single live fetus at 34 weeks 3 days Biophysical profile score 8/8 corresponding to an BECKI of 02/01/2025 Estimated weight g IMPRESSION: 1. Biophysical profile score: 8/8. 2. FHR: 151 bpm
[2024-12-24] MEDS: NIFEdipine 10 MG CAP PO ONE (12:17)
[2024-12-24] MEDS ORDERED: NIFE10CA52 PO (12:58)
--- NOTE | 2024-12-24 22:00 | DVHDS2 ---
Discharge Summary Date of Admission Dec 24, 2024 at 10:59 Date of Discharge: Dec 24, 2024 Admitting Diagnosis GDM A2 33 week labor here for routine monitoring. NST BPP performed reassuring no evidence of active labor. Wounds: None Labs/Diagnostic Data: Laboratory Results Test 12/24/24 11:54 POC Glucose 137 mg/dl (70-106) Brief Hx & Hospital Course: NST BPP performed Operations or Procedures NST BPP Condition at Discharge: Good Final Diagnosis/Problems List 33 weeks GDM A2 labor Discharge Disposition: Home Discharge Instruct/Medications Diet: Consistent carbohydrate Activity: Light activity Activity comment: Kick counts labor precautions carbohydrate precautions Follow Up/Referral: As scheduled routine weekly monitoring Scheduled Cephalexin Monohydrate (Cephalexin), 1 TAB PO TID Ibuprofen (Ibuprofen), 1 TAB PO TID Meclizine HCl (Meclizine 25), 25 MG PO DAILY Nifedipine (Procardia Capsule), 10 MG PO Q6HR, (Reported) Vit W/ Ferrous Fumara ( One Daily), 1 TAB PO DAILY, (Reported) Scheduled PRN Acetaminophen (Acetaminophen Extra Stren), 500 MG PO TID PRN Ondansetron Odt 4MG Tab (Zofran Po), 4 MG PO Q8HPRN PRN Miscellaneous Medications Aspirin (Aspirin 81), 81 MG OR, (Reported) Insulin Detemir (Levemir), 18 SC, (Reported) Discharge Statement: "Patient was advised to return to the ER or call 911 if any headaches, di zziness, shortness of breath, chest pain, abdominal pain, bleeding, fevers, or worsening of medical condition. Patient was counseled about treatment plan, medications, possible side effects, patientverbalized understanding. All questions were answered to the best of my ability. This discharge took greater then 30 minutes in planning, reviewing documentation, counseling the patient, and discussing with other team members." ASSESSMENT ASSESSMENT Assessment Visit Coding OBGYN Date of Service: Dec 24, 2024 Billing Provider: KAYLENE LUGO DO UNDERWRITING ACCOUNT REPRESENTATIVE Common Visit Codes: 92403-NBX/OBS SAME DATE (LOW), 01118-NHU/OBS SAME DATE (MOD), 86574-CGP/OBS SAME DATE (HIGH) UNDERWRITING ACCOUNT REPRESENTATIVE Procedure Codes: 38566-87- NON-STRESS TEST KAYLENE LUGO DO Dec 24, 2024 22:00
== END 2024-12-24 13:13 | disposition home or self-care (01) ==
LOC: LDRP 10:51 → UNDOADMOB 10:51 → LDRP 10:59 → UNDODISOB 13:13
PROVIDERS: ADMIT Obstetrics & Gynecology; ATTEND Obstetrics & Gynecology
DX: O24.419 Gestational diabetes mellitus in pregnancy, unspecified control (principal); O60.03 Preterm labor without delivery, third trimester; Z3A.33 33 weeks gestation of pregnancy
CPT/HCPCS: 59025; 76819; 81002; 82948; 82962; 94760; G0378

== ENCOUNTER 2024-12-27 06:07 | Observation (INO) | payer MEDICAID ==
[~2024-12-27] VITALS: Ht 195 cm; Wt 68.0 kg
[~2024-12-27 06:07] MED LIST changes: +NIFE10CA52 PO
--- NOTE | 2024-12-27 10:57 | DVH ---
BIOPHYSICAL PROFILE HISTORY: GDMA2, PTL TECHNIQUE: Multiple transabdominal real-time grayscale sonographic images through the gravid uterus o f the fetus with duplex doppler color flow and M-mode spectral analysis FINDINGS: BIOPHYSICAL PROFILE: breathing score: 2 movement score: 2 tone score: 2 Quantitative LUCAS score: 2 (LUCAS: 18.5 cm.) Total score: 8/8 The cervix 4.0 cm Single live fetus in cephalic presentation. heart rate 130 beats per minute. Grade 2 posterior placenta without previa or abruption Biophysical profile score 8/8 corresponding to an BECKI of 02/01/25 IMPRESSION: Biophysical profile score: 8/8
[2024-12-27] MEDS: TERBUTALINE SULFATE 1 MG/ML 1ML VIAL SC SCH (11:21)
--- NOTE | 2024-12-28 12:57 | DVHDS2 ---
Physician Discharge Progress N Final Diagnosis: gdm ptl 33wks Operations or Procedures: Operations or Procedures nst reactive reviwed,sono Condition on Discharge: Good Disposition: Home Discharge Instructions: Diet: Regular, Consistent carbohydrate Activity: No Restrictions, As Tolerated Medications: na Follow Up Care: Specialist: 3d Discharge Statement: "Patient was advised to return to the ER or call 911 if any headaches, dizziness, shortness of breath, chest pain, abdominal pain, bleeding, fevers, or worsening of medical condition. Patient was counseled about treatment plan, medications, possible side effects, patientverbalized understanding. All questions were answered to the best of my ability. This discharge took greater then 30 minutes in planning, reviewing documentation, counseling the patient, and discussing with other team members." Visit Coding OBGYN Date of Service: Dec 27, 2024 Billing Provider: VU MC DO SAVINGS TELLER Common Visit Codes: 75987-YMMVWXW OBS CARE (HIGH) SAVINGS TELLER Procedure Codes: 84292-61- NON-STRESS TEST VU MC DO Dec 28, 2024 12:57
== END 2024-12-27 12:08 | disposition home or self-care (01) ==
LOC: UNDOADMOB 10:22 → LDRP 10:22 → UNDODISOB 12:08
PROVIDERS: ADMIT Obstetrics & Gynecology; ATTEND Obstetrics & Gynecology
DX: O24.419 Gestational diabetes mellitus in pregnancy, unspecified control (principal); O60.03 Preterm labor without delivery, third trimester; Z3A.33 33 weeks gestation of pregnancy; Z98.890 Other specified postprocedural states
CPT/HCPCS: 59025; 76819; 81002; 82948; 82962; 94760; G0378; J3105

== ENCOUNTER 2024-12-28 06:05 | Observation (INO) | payer SELFPAY ==
[~2024-12-28] VITALS: Ht 160 cm; Wt 81.6 kg
--- NOTE | 2024-12-31 11:53 | DVH ---
BIOPHYSICAL PROFILE HISTORY: GDM/PTL TECHNIQUE: Multiple transabdominal real-time grayscale sonographic images through the gravid uterus o f the fetus with duplex doppler color flow and M-mode spectral analysis FINDINGS: BIOPHYSICAL PROFILE: breathing score: 2 movement score: 2 tone score: 2 Quantitative LUCAS score: 2 (LUCAS: 17.7 cm.) Total score: 8/8 The cervix is closed measuring 3.2 cm. Single live fetus in cephalic presentation. heart rate 157 beats per minute. Grade 2 posterior placenta without previa or abruption Biophysical profile score 8/8 corresponding to an BECKI of 02/01/25 IMPRESSION: Biophysical profile score: 8/8
[2024-12-31] MEDS ORDERED: BETAMETHASONE ACET (30mg/5ml) 5ml Vial 6mg/ml IM ONE (12:30)
[2024-12-31] MEDS: TERBUTALINE SULFATE 1 MG/ML 1ML VIAL SC SCH (12:49)
--- NOTE | 2024-12-31 23:25 | DVHDS2 ---
Discharge Summary Date of Admission Dec 31, 2024 at 11:01 Date of Discharge: Dec 31, 2024 Admitting Diagnosis Thirty-four week intrauterine GDM A2 labor Labs/Diagnostic Data: Laboratory Results Test 12/31/24 11:49 POC Glucose 74 mg/dl (70-106) Brief Hx & Hospital Course: 34 week GDM A2 labor Operations or Procedures BPP NST Condition at Discharge: Good Final Diagnosis/Problems List 34 week GDM A2 labor Discharge Disposition: Home Discharge Instruct/Medications Diet: Consistent carbohydrate Activity: No Restrictions, As Tolerated Scheduled Cephalexin Monohydrate (Cephalexin), 1 TAB PO TID Ibuprofen (Ibuprofen), 1 TAB PO TID Meclizine HCl (Meclizine 25), 25 MG PO DAILY Nifedipine (Procardia Capsule), 10 MG PO Q4HR, (Reported) Vit W/ Ferrous Fumara ( One Daily), 1 TAB PO DAILY, (Reported) Scheduled PRN Acetaminophen (Acetaminophen Extra Stren), 500 MG PO TID PRN Ondansetron Odt 4MG Tab (Zofran Po), 4 MG PO Q8HPRN PRN Miscellaneous Medications Aspirin (Aspirin 81), 81 MG OR, (Reported) Insulin Detemir (Levemir), 18 SC, (Reported) Discharge Statement: "Patient was advised to return to the ER or call 911 if any headaches, dizziness, shortness of breath, chest pain, abdominal pain, bleeding, fevers, or worsening of medical condition. Patient was counseled about treatment plan, medications, possible side effects, patientverbalized understanding. All questions were answered to the best of my ability. This discharge took greater then 30 minutes in planning, reviewing documentation, counseling the patient, and discussing with other team members." ASSESSMENT ASSESSMENT Assessment Visit Coding OBGYN Date of Service: Dec 31, 2024 Billing Provider: KAYLENE LUGO DO HOT MILL WORKER Common Visit Codes: 91889-[id number] INP/OBS CARE(MOD), 15537-AYP/OBS SAME DATE (LOW), 50411-ZMP/OBS SAME DATE (HIGH) HOT MILL WORKER Procedure Codes: 25911-17- NON-STRESS TEST KAYLENE LUGO DO Dec 31, 2024 23:25
== END 2024-12-31 14:22 | disposition home or self-care (01) ==
LOC: LDRP 12-31 10:45 → UNDOADMOB 12-31 10:45 → LDRP 12-31 11:01 → UNDODISOB 12-31 14:22
PROVIDERS: ADMIT Obstetrics & Gynecology; ATTEND Obstetrics & Gynecology
DX: O24.419 Gestational diabetes mellitus in pregnancy, unspecified control (principal); O60.03 Preterm labor without delivery, third trimester; Z3A.34 34 weeks gestation of pregnancy; Z98.890 Other specified postprocedural states; Z79.899 Other long term (current) drug therapy
CPT/HCPCS: 59025; 76819; 81002; 82948; 82962; 94760; 96360; 96361; 96372; G0378; J3105; 76818

== ENCOUNTER 2025-01-02 11:00 | Observation (INO) | payer MEDICAID ==
[~2025-01-02] VITALS: Ht 160 cm; Wt 72.6 kg
[2025-01-02 11:51] LABS: Hematocrit 30.9 % (36.0-46.0); Hemoglobin 9.9 g/dL (12.2-16.2); Mean Corpuscular Hemoglobin 22.3 pg (28.0-32.0); Mean Corpuscular Volume 69.4 fL (80.0-100.0); Nucleated Red Blood Cells % 0.0 %
[2025-01-02 11:59] LABS: Urine Protein, UAD Negative (Negative)
[2025-01-02 12:00] LABS: Protein, Urine 14.1 mg/dL (1-14)
[2025-01-02 12:04] LABS: Alanine Aminotransferase 10 U/L (7-40)
[2025-01-02 12:05] LABS: Albumin 4.0 g/dL (3.2-4.8); Anion Gap 10 (5-15); BUN/Creatinine Ratio 16.2 (10.0-20.0); Bilirubin, Total 0.3 mg/dL (0.2-1.0); Calcium 9.3 mg/dL (8.7-10.4); Chloride 107 mmol/L (98-107); Glucose 78 mg/dL (74-106); Potassium 3.8 mmol/L (3.5-5.1); Sodium 137 mmol/L (136-145); Total Protein 7.3 g/dL (5.7-8.2); Uric Acid 3.6 mg/dL (3.1-7.8)
[2025-01-02 12:06] LABS: Alkaline Phosphatase 161 U/L (46-116); Blood Urea Nitrogen 6 mg/dL (9-23); Carbon Dioxide 20 mmol/L (20-31)
[2025-01-02 12:08] LABS: INR 0.97 (0.9-1.15); Partial Thromboplastin Time 23.6 SEC (24.5-34.5); Prothrombin Time 10.3 sec (9.3-11.8)
--- NOTE | 2025-01-02 12:26 | DVH ---
BIOPHYSICAL PROFILE HISTORY: PIH TECHNIQUE: Multiple transabdominal real-time grayscale sonographic images through the gravid uterus of the fetus with duplex Doppler color flow and M-mode spectral analysis FINDINGS: BIOPHYSICAL PROFILE: breathing score: 2 movement score: 2 tone score: 2 Quantitative LUCAS score: 2 (LUCAS: 20 Cm.) Total score: 8 The cervix was not seen Single live fetus in cephalic presentation. heart rate 136 beats per minute. Grade III posterior fundal placenta without previa or abruption IMPRESSION: Biophysical profile score: 8/8
[2025-01-02] MEDS: TERBUTALINE SULFATE 1 MG/ML 1ML VIAL SC SCH (13:17)
--- NOTE | 2025-01-04 14:15 | DVHDS2 ---
Physician Discharge Progress N Final Diagnosis: pih 36wks Operations or Procedures: Operations or Procedures nst reactive reviwed,sono Condition on Discharge: Good Disposition: Home Discharge Instructions: Diet: Regular Activity: No Restrictions, As Tolerated Follow Up/Referral: as scheduled. Medications: na Follow Up Care: Specialist: 3d Discharge Statement: "Patient was advised to return to the ER or call 911 if any headaches, dizziness, shortness of breath, chest pain, abdominal pain, bleeding, fevers, or worsening of medical condition. Patient was counseled about treatment plan, medications, possible side effects, patientverbalized understanding. All questions were answered to the best of my ability. This discharge took greater then 30 minutes in planning, reviewing documentation, counseling the patient, and discussing with other team members." Visit Coding OBGYN Date of Service: Jan 02, 2025 Billing Provider: VU MC DO GEOTHERMAL HEAT PUMP MACHINIST Common Visit Codes: 70505-EEHDDWO OBS CARE (HIGH) GEOTHERMAL HEAT PUMP MACHINIST Procedure Codes: 35209-56- NON-STRESS TEST VU MC DO Jan 04, 2025 14:15
== END 2025-01-02 14:20 | disposition home or self-care (01) ==
LOC: LDRP 11:00 → UNDOADMOB 11:00 → LDRP 11:10
PROVIDERS: ADMIT Obstetrics & Gynecology; ATTEND Obstetrics & Gynecology
DX: O13.3 Gestational [pregnancy-induced] hypertension without significant proteinuria, third trimester (principal); Z3A.34 34 weeks gestation of pregnancy; Z79.899 Other long term (current) drug therapy; Z98.890 Other specified postprocedural states
CPT/HCPCS: 36415; 59025; 76817; 76819; 80053; 81001; 81002; 82570; 84156; 84550; 85025; 85610; 85730; 94760; 96372; G0378; J3105

== ENCOUNTER 2025-01-03 08:08 | Observation (INO) | payer MEDICAID ==
[~2025-01-03] VITALS: Ht 153 cm; Wt 91.2 kg
[2025-01-26] MEDS ORDERED: LACTATED RINGER'S 1,000 ML IV ONE (18:15)
[2025-01-26] MEDS: TERBUTALINE SULFATE 1 MG/ML 1ML VIAL SC SCH (18:24)
[2025-01-26] MEDS: NIFEdipine 10 MG CAP PO ONE ×2 (18:25→22:13)
[2025-01-26 18:43] LABS: Nucleated Red Blood Cells % 0.1 %
[2025-01-26 18:45] LABS: Hematocrit 31.2 % (36.0-46.0); Hemoglobin 9.8 g/dL (12.2-16.2); Mean Corpuscular Hemoglobin 21.4 pg (28.0-32.0); Mean Corpuscular Volume 68.3 fL (80.0-100.0)
[2025-01-26 18:45] LABS: Urine Budding Yeast OCCASIONAL /hpf (None Seen); Urine Protein, UAD TRACE (Negative)
[2025-01-26 18:52] LABS: INR 0.97 (0.9-1.15); Partial Thromboplastin Time 22.8 SEC (24.5-34.5); Prothrombin Time 10.3 sec (9.3-11.8)
[2025-01-26 18:53] LABS: Amphetamine Screen, Urine Neg (NEGATIVE); Barbiturate Scree,Urine Neg (NEGATIVE); Benzodiazephine Screen, Urine Neg (NEGATIVE)
[2025-01-26 18:54] LABS: Cannabinoid Screen, Urine Neg (NEGATIVE); Cocaine Screen, Urine Neg (NEGATIVE); Opiate Scree,Urine Neg (NEGATIVE); Phencyclidine Screen, Urine Neg (NEGATIVE)
[2025-01-26 18:55] LABS: Alanine Aminotransferase 10 U/L (7-40); Albumin 3.9 g/dL (3.2-4.8); Anion Gap 12 (5-15); BUN/Creatinine Ratio 26.5 (10.0-20.0); Blood Urea Nitrogen 13 mg/dL (9-23); Calcium 9.0 mg/dL (8.7-10.4); Glucose 83 mg/dL (74-106); Potassium 3.9 mmol/L (3.5-5.1); Sodium 139 mmol/L (136-145); Total Protein 7.0 g/dL (5.7-8.2)
[2025-01-26 19:06] LABS: Alkaline Phosphatase 214 U/L (46-116); Bilirubin, Total 0.2 mg/dL (0.2-1.0); Carbon Dioxide 18 mmol/L (20-31); Chloride 109 mmol/L (98-107)
--- NOTE | 2025-01-26 20:20 | DVHDS2 ---
Physician Discharge Progress N Final Diagnosis: IUP at 37w 5d GDMA2 h/o Section Operations or Procedures: Operations or Procedures Management orders by Dr Webster S: 34yo G4,2011 with EDC of 02/11/25, MIGUEL ANGEL 37w 5d presents to the place with report of uterine contractions. She reports normal FM, no SROM, no VB, no MOREAU no vision changes. Desires repeat C- section on 02/01/25. O: A&O x3, VSS Resp unlabored Appears uncomfortable Abdomen palpate soft EFM Tocometer: UCs q x secs US: FHR baseline bpm, mod variability, accelerations present, no deceleration VE: by RN close/ thick / -3 POC blood glucose: 114mg/dL Routine pre-op labs A IUP at 37w 5d GDMA2 h/o Section Desires Repeat C- section Category I FHR Tracing P: (Ordered by Dr. Webster) > IV hydration > Tocolysis Reassessment 21:30 S: Patient reports she feels much better at this time O: Contraction now one in 45minutes x 130secs FHR baseline 150bpm, with accelerations present, deceleration absent SVE: Close/ 20% /high /posterior A: IUP at 37w 5d GDMA2 h/o Section Desires Repeat C- section Category I FHR Tracing P: Discharge home Keep scheduled appt on 01/29/25; seek care sooner if needed 3rd trimester emergency S&S [facility], labor & pre-eclampsia precautions reviewed with pt; advised to seek health care if any Condition on Discharge: Stable Disposition: Home Discharge Instructions: Diet: Regular, See Comment Diet comment: As advised for GDM Activity: No Restrictions, As Tolerated Activity comment: Balance activities with rest periods Follow Up/Referral: Keep scheduled appointment, seek care sooner if needed Medications: Procardia Follow Up Care: Discharge Statement: 3rd trimester emergency S&S [facility], labor & pre-eclampsia precautions reviewed with pt; advised to seek health care if any "Patient was advised to return to the ER or call 911 if any headaches, dizziness, shortness of breath, chest pain, abdominal pain, bleeding, fevers, or worsening of medical condition. Patient was counseled about treatment plan, medications, possible side effects, patientverbalized understanding. All questions were answered to the best of my ability. This discharge took greater then 30 minutes in planning, reviewing documentation, counseling the patient, and discussing with other team members." Discharge Care Plan Instructions See pt D/C handouts Visit Coding OBGYN Date of Service: Jan 26, 2025 Billing Provider: RICHARDSON MCCRAY CNM CUFF STITCHER Common Visit Codes: 56113-TKO/OBS SAME DATE (HIGH) CUFF STITCHER Procedure Codes: 22358-42- NON-STRESS TEST RICHARDSON MCCRAY CNM Jan 26, 2025 20:20
[2025-01-29] MEDS ORDERED: NIFE10CA52 PO ×2 (11:56)
== END 2025-01-26 22:28 | disposition home or self-care (01) ==
LOC: LDRP 01-26 16:55
PROVIDERS: ADMIT Obstetrics & Gynecology; ATTEND Obstetrics & Gynecology
DX: O24.419 Gestational diabetes mellitus in pregnancy, unspecified control (principal); O62.9 Abnormality of forces of labor, unspecified; R79.1 Abnormal coagulation profile; Z98.890 Other specified postprocedural states; Z3A.37 37 weeks gestation of pregnancy; Z79.899 Other long term (current) drug therapy
CPT/HCPCS: 36415; 59025; 80053; 80307; 81001; 81002; 82962; 85025; 85610; 85730; 86850; 86900; 86901; 94760; 96360; 96361; 96372; A4649; G0378; J3105

== ENCOUNTER 2025-01-09 09:27 | Outpatient (CLI) | payer MEDICAID ==
[2025-01-09 09:44] LABS: Nucleated Red Blood Cells % 0.0 %
[2025-01-09 09:45] LABS: Hematocrit 32.1 % (36.0-46.0); Hemoglobin 10.2 g/dL (12.2-16.2); Mean Corpuscular Hemoglobin 22.0 pg (28.0-32.0); Mean Corpuscular Volume 69.2 fL (80.0-100.0)
[2025-01-11 05:09] LABS: Chlamydia Trachomatis, NAA Negative (Negative); Neisseria gonorrhoeae, NAA Negative (Negative)
== END 2025-01-09 17:00 | disposition home or self-care (01) ==
LOC: LAB 09:27
PROVIDERS: ATTEND Obstetrics & Gynecology
DX: Z34.80 Encounter for supervision of other normal pregnancy, unspecified trimester (principal); Z3A.00 Weeks of gestation of pregnancy not specified
CPT/HCPCS: 36415; 85025; 86780

== ENCOUNTER 2025-01-12 09:55 | Observation (INO) | payer MEDICAID ==
--- NOTE | 2025-01-12 10:47 | DVH ---
BIOPHYSICAL PROFILE HISTORY: gdma2 Comparison Study: US BIOPHYSICAL PROFILE on DOS: 01/02/25, US BIOPHYSICAL PROFILE on DOS: 12/31/24, US BIOPHYSICAL PROFILE on DOS: 12/27/24, US BIOPHYSICAL PROFILE on DOS: 12/24/24, US BIOPHYSICAL PROFILE on DOS: 12/22/24 TECHNIQUE: Multiple real-time grayscale sonographic images through the gravid uterus of the fetus with duplex Doppler color flow and M-mode spectral analysis FINDINGS: BIOPHYSICAL PROFILE: breathing score: 2 movement score: 2 tone score: 2 Quantitative LUCAS score: 2 (LUCAS: 17.5 cm) Total score: 8/8 The cervix was not visualized. Single live fetus in cephalic presentation. heart rate 140 beats per minute. Grade 2 posterior fundal placenta without previa or abruption Single live fetus at 37 weeks 1 day Biophysical profile score 8/8 corresponding to an BECKI of 02/01/2025 IMPRESSION: Biophysical profile score: 8/8
[2025-01-12] MEDS ORDERED: TERBUTALINE SULFATE 1 MG/ML 1ML VIAL SC ONE (11:00)
[2025-01-12] MEDS ORDERED: LACTATED RINGER'S 1,000 ML IV ONE (11:00)
[2025-01-12] MEDS: TERBUTALINE SULFATE 1 MG/ML 1ML VIAL SC SCH (11:21)
--- NOTE | 2025-01-13 11:53 | DVHDS2 ---
Discharge Summary Date of Admission Jan 12, 2025 at 09:55 Date of Discharge: Jan 12, 2025 Admitting Diagnosis Intrauterine GDM A2 pressure labor routine monitoring. Wounds: None Labs/Diagnostic Data: Laboratory Results Test 01/12/25 10:49 POC Glucose 101 mg/dl (70-106) Brief Hx & Hospital Course: Patient GDM A2 filling pressure had NST BPP both reassuring. Consults/Reason for consult None Operations or Procedures NST BPP Condition at Discharge: Good Final Diagnosis/Problems List GDM A2 intrauterine reassuring no labor Discharge Disposition: Home Discharge Instruct/Medications Diet: Consistent carbohydrate Activity: Light activity Activity comment: Kick counts labor precautions Follow Up/Referral: As scheduled Medications: Resume home meds Scheduled Cephalexin Monohydrate (Cephalexin), 1 TAB PO TID Ibuprofen (Ibuprofen), 1 TAB PO TID Meclizine HCl (Meclizine 25), 25 MG PO DAILY Nifedipine (Procardia Capsule), 10 MG PO Q4HR, (Reported) Vit W/ Ferrous Fumara ( One Daily), 1 TAB PO DAILY, (Reported) Scheduled PRN Acetaminophen (Acetaminophen Extra Stren), 500 MG PO TID PRN Ondansetron Odt 4MG Tab (Zofran Po), 4 MG PO Q8HPRN PRN Miscellaneous Medications Aspirin (Aspirin 81), 81 MG OR, (Reported) Insulin Detemir (Levemir), 18 SC, (Reported) Discharge Statement: "Patient was advised to return to the ER or call 911 if any headaches, dizziness, shortness of breath, chest pain, abdominal pain, bleeding, fevers, or worsening of medical condition. Patient was counseled about treatment plan, medications, possible side effects, patientverbalized understanding. All questions were answered to the best of my ability. This discharge took greater then 30 minutes in planning, reviewing documentation, counseling the patient, and discussing with other team members." ASSESSMENT ASSESSMENT Assessment Visit Coding OBGYN Date of Service: Jan 13, 2025 Billing Provider: KAYLENE LUGO DO WALLPAPER HANGER Common Visit Codes: 74127-YNZ/OBS SAME DATE (LOW), 46773-EVC/OBS SAME DATE (MOD), 79508-ZSM/OBS SAME DATE (HIGH) WALLPAPER HANGER Procedure Codes: 72180-01- NON-STRESS TEST KAYLENE LUGO DO Jan 13, 2025 11:53
== END 2025-01-12 12:33 | disposition home or self-care (01) ==
LOC: LDRP 09:55
PROVIDERS: ADMIT Obstetrics & Gynecology; ATTEND Obstetrics & Gynecology
DX: O24.419 Gestational diabetes mellitus in pregnancy, unspecified control (principal); Z3A.35 35 weeks gestation of pregnancy; Z98.890 Other specified postprocedural states
CPT/HCPCS: 76819; 81002; 82948; 82962; 94760; 96360; 96361; 96372; G0378; J3105; 59025

== ENCOUNTER 2025-01-29 10:00 | Observation (INO) | payer MEDICAID ==
[2025-01-29 10:50] LABS: Hematocrit 32.5 % (36.0-46.0); Hemoglobin 10.3 g/dL (12.2-16.2); Mean Corpuscular Hemoglobin 21.7 pg (28.0-32.0); Mean Corpuscular Volume 68.0 fL (80.0-100.0); Nucleated Red Blood Cells % 0.1 %
[2025-01-29 11:02] LABS: Urine Protein, UAD TRACE (Negative)
[2025-01-29 11:05] LABS: Alanine Aminotransferase 10 U/L (7-40); Albumin 3.9 g/dL (3.2-4.8); Anion Gap 11 (5-15); BUN/Creatinine Ratio 20.5 (10.0-20.0); Blood Urea Nitrogen 9 mg/dL (9-23); Calcium 9.1 mg/dL (8.7-10.4); Carbon Dioxide 20 mmol/L (20-31); Glucose 82 mg/dL (74-106); Potassium 4.1 mmol/L (3.5-5.1); Sodium 138 mmol/L (136-145); Total Protein 7.2 g/dL (5.7-8.2); Uric Acid 5.1 mg/dL (3.1-7.8)
[2025-01-29 11:06] LABS: INR 0.95 (0.9-1.15); Partial Thromboplastin Time 23.9 SEC (24.5-34.5); Prothrombin Time 10.1 sec (9.3-11.8)
[2025-01-29 11:10] LABS: Alkaline Phosphatase 219 U/L (46-116); Bilirubin, Total 0.2 mg/dL (0.2-1.0); Chloride 107 mmol/L (98-107)
[2025-01-29 11:11] LABS: Protein, Urine 29.8 mg/dL (1-14)
[2025-01-29] MEDS ORDERED: NIFE10CA52 PO (11:56)
--- NOTE | 2025-01-29 17:53 | DVH ---
BIOPHYSICAL PROFILE HISTORY: PIH Comparison Study: US BIOPHYSICAL PROFILE on DOS: 01/12/25, US BIOPHYSICAL PROFILE on DOS: 01/02/25, US OB TRANS VAGINAL US on DOS: 01/02/25, US BIOPHYSICAL PROFILE on DOS: 12/31/24, US BIOPHYSICAL PROFILE on DOS: 12/27/24 TECHNIQUE: Multiple real-time grayscale sonographic images through the gravid uterus of the fetus with duplex Doppler color flow and M-mode spectral analysis FINDINGS: BIOPHYSICAL PROFILE: breathing score: 2 movement score: 2 tone score: 2 Quantitative LUCAS score: 2 (LUCAS: 12.9 Cm.) Total score: 8/8 Single live fetus in cephalic presentation. heart rate 140 beats per minute. Posterior placenta without previa or abruption Biophysical profile score 8/8 corresponding to an BECKI of 02/11/2025 IMPRESSION: Biophysical profile score: 8/8
--- NOTE | 2025-01-30 15:03 | DVHDS2 ---
Physician Discharge Progress N Final Diagnosis: pih 38wks ruled out Operations or Procedures: Operations or Procedures nst reactive reviwed,maiao Condition on Discharge: Good Disposition: Home Discharge Instructions: Diet: Consistent carbohydrate Activity: Light activity Medications: na Follow Up Care: Specialist: 2d Discharge Statement: "Patient was advised to return to the ER or call 911 if any headaches, dizziness, shortness of breath, chest pain, abdominal pain, bleeding, fevers, or worsening of medical condition. Patient was counseled about treatment plan, medications, possible side effects, patientverbalized understanding. All questions were answered to the best of my ability. This discharge took greater then 30 minutes in planning, reviewing documentation, counseling the patient, and discussing with other team members." Visit Coding OBGYN Date of Service: Jan 29, 2025 Billing Provider: VU MC DO HUMAN SERVICES CASE MANAGER Common Visit Codes: [id number] OBS CARE (HIGH) HUMAN SERVICES CASE MANAGER Procedure Codes: 21520-51- NON-STRESS TEST VU MC DO Jan 30, 2025 15:03
[2025-02-01] MEDS ORDERED: IBUP-1455 PO (20:18)
[2025-02-01] MEDS ORDERED: HYDR-4902 PO (20:18)
[2025-02-03] MEDS ORDERED: FERR30CA PO (09:14)
[2025-02-03] MEDS ORDERED: FERR325T24 PO (09:14)
== END 2025-01-29 12:09 | disposition home or self-care (01) ==
LOC: LDRP 10:00
PROVIDERS: ADMIT Obstetrics & Gynecology; ATTEND Obstetrics & Gynecology
DX: O13.3 Gestational [pregnancy-induced] hypertension without significant proteinuria, third trimester (principal); Z3A.38 38 weeks gestation of pregnancy; Z98.890 Other specified postprocedural states
CPT/HCPCS: 36415; 59025; 76819; 80053; 81001; 81002; 82570; 84156; 84550; 85025; 85610; 85730; 86850; 86900; 86901; 94760; A4649; G0378

== ENCOUNTER 2025-02-01 06:17 | Inpatient (IN) | payer MEDICAID ==
[2025-02-01] VITALS (9 sets, daily range): BP systolic 129–143; BP diastolic 75–90; PULSE 63–82; RESP 16–20; TEMP 97.6–98.1; O2SAT 95–99
[~2025-02-01] VITALS: Ht 153 cm; Wt 92.5 kg
--- NOTE | 2025-02-01 09:56 | DVH ---
BIOPHYSICAL PROFILE HISTORY: GDMA2/PIH Comparison Study: US BIOPHYSICAL PROFILE on DOS: 01/29/25, US BIOPHYSICAL PROFILE on DOS: 01/12/25, US BIOPHYSICAL PROFILE on DOS: 01/02/25, US OB TRANS VAGINAL US on DOS: 01/02/25, US BIOPHYSICAL PROFILE on DOS: 12/31/24 TECHNIQUE: Multiple real-time grayscale sonographic images through the gravid uterus of the fetus with duplex Doppler color flow and M-mode spectral analysis FINDINGS: BIOPHYSICAL PROFILE: breathing score: 2 movement score: 2 tone score: 2 Quantitative LUCAS score: 2 (LUCAS: 17.06 Cm.) Total score: 8 The cervix is not visualized Single live fetus in cephalic presentation. heart rate 148 beats per minute. Grade 3, posterior placenta without previa or abruption IMPRESSION: Biophysical profile score: 8
[2025-02-01] MEDS ORDERED: ceFAZolin 1GM/50ML 50 ML IV ONE (10:15)
[2025-02-01 10:25] LABS: Hematocrit 31.3 % (36.0-46.0); Hemoglobin 10.2 g/dL (12.2-16.2); Mean Corpuscular Hemoglobin 22.0 pg (28.0-32.0); Mean Corpuscular Volume 67.7 fL (80.0-100.0); Nucleated Red Blood Cells % 0.1 %
--- NOTE | 2025-02-01 10:25 | DVHHP2 ---
OB CC & HPI Date Date of Admission: Feb 01, 2025 Patient Identification: : 4 Para: 2 EDC: Feb 11, 2025 EGA: 38.4 Chief Complaints: Reason for admission: active labor History of Present Complaints Early Term 38w4d complicated by GDMA2 on Insulin, moderate control Presented for NST and noted to have regular contractions every 2-5 mins. Patient rates labor pains as moderate and uncomfortable Denies PROM or vaginal bleeding Requesting repeat C/S with sterilization procedure PNL care w/ Dr Webster Past Medical History Cardiac: No pertinent Hx Pulmonary: No pertinent Hx Central Nervous System: No pertinent Hx GI: No pertinent Hx Hemotology/Oncology: No pertinent Hx Hepatobiliary: No pertinent Hx Psychiatric: No pertinent Hx Musculoskeletal: No pertinent Hx Rheumotologic: No pertinent Hx Infectious Disease: No peritnent Hx ENT: No pertinent Hx Renal/: No pertinent Hx Endocrine: No pertinent Hx Dermatology: No pertinent Hx Past Surgical History: OB History OB History Ultrasounds: Normal mid trimester US Obstetrical Complications: Gestational Diabetes Medical Complications: None Allergies: Coded Allergies: NO KNOWN ALLERGIES (Unverified , 12/31/23) Home Meds Active Scripts Ondansetron Odt 4MG Tab (ZOFRAN PO) 4 Mg Tb, 4 MG PO Q8HPRN PRN for 3 Days, #9 TAB ODT TAB-DISSOLVE IN MOUTH, THEN SWALLOW Prov:MARJORIE HERNÁNDEZ DO 06/14/24 Cephalexin Monohydrate (Cephalexin) 500 Mg Tab, 1 TAB PO TID for 5 Days, #15 TAB Prov:MARJORIE HERNÁNDEZ DO 06/14/24 Meclizine HCl (Meclizine 25) 25 Mg Tab, 25 MG PO DAILY, #30 TAB Prov:FAITH WATKINS PAC 05/20/24 Ibuprofen (Ibuprofen) 600 Mg Tab, 1 TAB PO TID for 10 Days, #30 TAB Prov:BO JIANG MD 12/31/23 Acetaminophen (Acetaminophen Extra Stren) 500 Mg Tab, 500 MG PO TID PRN for 10 Days, #30 TAB Prov:BO JIANG MD 12/31/23 Reported Medications Nifedipine (PROCARDIA CAPSULE) 10 Mg Cp, 10 MG PO Q8HR, CAP 01/29/25 Nifedipine (PROCARDIA CAPSULE) 10 Mg Cp, 10 MG PO Q4HR, CAP 10/27/25 Aspirin (ASPIRIN 81) 81 Mg Tab, 81 MG OR, TAB 12/17/24 Insulin Detemir (Levemir) Inj, 18 SC, INJ 12/17/24 Vit W/ Ferrous Fumara ( One Daily) Daily Tab, 1 TAB PO DAILY, #90 TAB 3 Refills 11/14/24 Current Medications Current Medications Medications (Trade) Dose Ordered Sig/Devon Route PRN Reason Start Time Stop Time Status Last Admin Lactated Ringer's 1,000 ml @ 125 mls/hr Q8H IV 02/01/25 10:15 Review of Systems Constitutional: No symptom reported Ears, Nose, & Throat: No symptom reported Eyes: No symptom reported Pulmonary/Respiratory: No symptom reported Cardiovascular: No symptom reported Gastrointestinal: No symptom reported Genitourinary: No symptom reported Musculoskeletal: No symptom reported Skin: No symptom reported Psychiatric: No symptom reported Endocrine: No symptom reported Hemotologic/Lymphatic: No symptom reported OB Admission Exam Physical Exam HEENT: NCAT Heart: Rhythm Normal Lungs: Clear Abdomen: Gravid Extremities: Normal Reflexes: Normal Pelvic Exam: Deferred Heart Rate: 140's Accelerations: Accelerations Present Decelerations: No Decelerations Short Term Variability: Present Detention Variability: Average (6-25) Contractions on Admission: < 5 Minutes Apart Intensity: Moderate OB Plan Plan Admitting Diagnosis: IUP 38.4 wk GDMA2, Previous C/S x 2 in early labor Requesing voluntary sterilization Plan: Section, Other (BTL) Other Plan: Admit for repeat C/S and BTL sterilization R/B/A of procedure d/w patient. informed consent obtained 1% failure rate of sterilization reviewed Visit Coding OBGYN Date of Service: Feb 01, 2025 Billing Provider: GINNY SCHAEFFER DO LIFE SCIENCES TEACHER Common Visit Codes: [id number] INP/OBS CARE (HIGH) GINNY SCHAEFFER DO Feb 01, 2025 10:25
[2025-02-01 10:39] LABS: Albumin 4.0 g/dL (3.2-4.8); Anion Gap 11 (5-15); BUN/Creatinine Ratio 16.3 (10.0-20.0); Bilirubin, Total 0.3 mg/dL (0.2-1.0); Calcium 8.8 mg/dL (8.7-10.4); Carbon Dioxide 21 mmol/L (20-31); Chloride 106 mmol/L (98-107); Glucose 75 mg/dL (74-106); INR 0.95 (0.9-1.15); Partial Thromboplastin Time 23.6 SEC (24.5-34.5); Potassium 4.0 mmol/L (3.5-5.1); Prothrombin Time 10.1 sec (9.3-11.8); Sodium 138 mmol/L (136-145); Total Protein 7.2 g/dL (5.7-8.2); Uric Acid 5.1 mg/dL (3.1-7.8)
[2025-02-01 10:40] LABS: Alanine Aminotransferase 9 U/L (7-40); Alkaline Phosphatase 226 U/L (46-116); Blood Urea Nitrogen 7 mg/dL (9-23)
[2025-02-01 10:48] LABS: Urine Protein, UAD 1+ (Negative)
[2025-02-01 10:55] LABS: Protein, Urine 66.3 mg/dL (1-14)
[2025-02-01 11:02] LABS: Amphetamine Screen, Urine Neg (NEGATIVE); Barbiturate Scree,Urine Neg (NEGATIVE); Benzodiazephine Screen, Urine Neg (NEGATIVE); Cannabinoid Screen, Urine Neg (NEGATIVE); Cocaine Screen, Urine Neg (NEGATIVE); Opiate Scree,Urine Neg (NEGATIVE); Phencyclidine Screen, Urine Neg (NEGATIVE)
[2025-02-01] MEDS ORDERED: fentaNYL CITRATE 100 MCG/2 ML VL ONE (11:23)
[2025-02-01] MEDS ORDERED: MORPHINE SULF PF 5 MG/10 ML VIAL ONE (11:23)
[2025-02-01] MEDS ORDERED: ONDANSETRON HCL 4 MG/2 ML VIAL ONE (11:24)
[2025-02-01] MEDS ORDERED: KETOROLAC TROMETH 30 MG/ML 1ML VIAL ONE (11:24)
[2025-02-01] MEDS ORDERED: GLYCOPYRROLATE 0.2 MG/ML 1ML VIAL ONE (11:24)
[2025-02-01] MEDS ORDERED: BUPIVACAINE/DEXTROSE MPF 0.75% 2 ML AMP IT ONE (11:24)
[2025-02-01] MEDS: LACTATED RINGER'S 1,000 ML IV ONE (11:27)
[2025-02-01] MEDS: ceFAZolin 2 GM/D5W50ml 50 ML IV ONE (11:27)
[2025-02-01] MEDS ORDERED: HYDROcodone-ACET 5/325MG TAB PO PRN ×2 (12:45)
[2025-02-01] MEDS ORDERED: diphenhydrAMINE HCL 50 MG/1 ML VL IV PRN (13:00)
[2025-02-01] MEDS ORDERED: ACETAMINOPHEN IV 1000 MG/100ML (10MG/ML) IV PRN (13:00)
[2025-02-01] MEDS ORDERED: NALOXONE HCL 0.4 MG/ML VIAL IV PRN (13:00)
[2025-02-01] MEDS ORDERED: KETOROLAC TROMETH 30 MG/ML 1ML VIAL IV PRN (13:00)
--- NOTE | 2025-02-01 13:56 | DVHOP ---
DATE OF SURGERY: 02/01/2025 PREOPERATIVE DIAGNOSES: * Early Term intrauterine , 38 weeks 4 days. * Previous section x 2. * Early labor, requesting repeat section. * Gestational diabetes mellitus A2 on insulin. * Multiparity requesting voluntary female sterilization. FINAL DIAGNOSES: * Early Term intrauterine , 38 weeks 4 days. * Previous section x 2. * Early labor, requesting repeat section. * Gestational diabetes mellitus A2 on insulin. * Multiparity requesting voluntary female sterilization.. * macrosomia. PROCEDURES PERFORMED: * Repeat low transverse section via Pfannenstiel skin incision. * Bilateral total salpingectomies (female sterilization procedure) * Lysis of adhesions. SURGEON: Guevara Parker DO ACCOUNT MANAGER TRAINEE: Marjan Lomax electronic tech TYPE OF ANESTHESIA: Spinal. ANESTHESIOLOGIST: Viktoria Cerda MD DESCRIPTION OF FINDINGS: Delivery of a liveborn female infant, cephalic presentation, clear amniotic fluid. scores of 8, 9, weight 10 pounds, 4 ounces (4940 g). Normal bilateral fallopian tubes, ovaries, normal-appearing placenta, 2-layer uterine closure, omental adhesions to the anterior abdominal wall. TECHNICAL PROCEDURE: After informed consent was obtained, the patient was taken to the operating room where her spinal anesthesia was found to be adequate. The patient was placed in the supine position with a slight leftward tilt. She was sterilely prepped and draped in the usual fashion. A Pfannenstiel skin incision was made with the scalpel. The incision was sharply developed to the underlying layer of fascia and peritoneum. Blunt entry into the peritoneal cavity was performed. The peritoneal incision was extended superiorly and inferiorly with good visualization of the bladder. The Holger O retractor was placed into the incision. The lower uterine segment was incised using a 2nd scalpel in a low transverse fashion. The amniotic fluid membranes were ruptured. The baby had clear amniotic fluid. The baby was in the cephalic presentation. The baby was delivered atraumatically. After delivery of the infant, the nose and mouth were suctioned. The cord was clamped and cut after 60 seconds and the baby handed off to a pediatric team. Cord blood was obtained. The placenta was spontaneously delivered. The uterus was exteriorized and cleared of all clots and debris using moist laparotomy sponges. The uterine incision was repaired with #0 Stratafix spiral PDS in continuous running fashion in 2 layers. Excellent tissue approximation and hemostasis was obtained. The left fallopian tube was found. It was traced to its fimbriated end. It was grasped with a Jessica clamp. Using the LigaSure apparatus, the fallopian tube was dissected across the mesosalpinx with LigaSure. The proximal end of the fallopian tube was transected with LigaSure and the left fallopian tube submitted entirely to pathology. The exact same procedure was performed on the right fallopian tube. There was no bleeding from the mesosalpinx. The left and right fallopian tubes were submitted to pathology. The uterus was returned to the abdomen. The cul-de-sac and pericolic gutters were cleared of all clots and debris. The abdomen was irrigated with sterile water. Hemostasis was once again confirmed. All instruments were removed from the patient's abdomen. There were omental adhesions to the anterior abdominal wall that were sharply and bluntly lysed. The peritoneum was not closed. The rectus fascia was closed using #1 PDS in continuous running fashion with good tissue approximation. The subcutaneous tissue was approximated using 2-0 plain gut and the skin closed in subcuticular fashion using 2-0 Stratafix with good tissue approximation. Sylke dressing was then placed over the skin incision. The patient tolerated the procedure well. Sponge, lap, and needle counts were correct x 4. INTRAOPERATIVE COMPLICATIONS: None. ESTIMATED BLOOD LOSS: 700 mL. POSTOPERATIVE CONDITION: Postoperative condition is stable. SPECIMENS: Left and right fallopian tubes, placenta, and cord blood. MEDICATIONS: Ancef 2 g prior to skin incision. DO DALLAS Shaw/GARIMA TID: [id number] RECEIPT: [id number] [facility]
[2025-02-01] MEDS: FAMOTIDINE (10MG/ML) 2ML VL IV ONE (15:36)
[2025-02-01] MEDS: LACTATED RINGER'S 1,000 ML IV SCH (17:15)
[2025-02-01] MEDS: ceFAZolin 1GM/50ML 50 ML IV SCH (19:20)
[2025-02-01] MEDS ORDERED: HYDR-4902 PO ×2 (20:18)
[2025-02-01] MEDS ORDERED: IBUP-1455 PO ×2 (20:18)
[2025-02-01] MEDS: ACETAMINOPHEN IV 1000 MG/100ML (10MG/ML) IV PRN (21:50)
[2025-02-01] MEDS: DOCUSATE SOD 100 MG CAP PO SCH (22:00)
[2025-02-01] MEDS ORDERED: IBUPROFEN 800 MG TAB PO PRN (23:59)
[2025-02-02] VITALS (11 sets, daily range): BP systolic 120–139; BP diastolic 70–88; PULSE 76–105; RESP 16–18; TEMP 97.8–98.5; O2SAT 94–98
[2025-02-02 05:20] LABS: Nucleated Red Blood Cells % 0.0 %
[2025-02-02 05:21] LABS: Hematocrit 27.3 % (36.0-46.0); Hemoglobin 8.5 g/dL (12.2-16.2); Mean Corpuscular Hemoglobin 21.1 pg (28.0-32.0); Mean Corpuscular Volume 67.4 fL (80.0-100.0)
--- NOTE | 2025-02-02 09:52 | DVHPN2 ---
Progress Note Date Seen: Feb 02, 2025 Subjective POD#1 s/p repeat C/S and BTL at 38.4 wk (early labor) # GDMA2, normal pp glycemic control # Precipitous drop in H/H ( Hb 10.2 to 8.5 post op) Feeling well. lochia mild. pain controlled. tolerating PO well vital signs Vital Sign Date Time Temp Pulse Resp B/P (MAP) Pulse Ox O2 Delivery O2 Flow Rate FiO2 02/02/25 07:15 Room Air 02/02/25 07:15 98.3 96 16 128/76 (93) 97 98.3 02/01/25 12:43 0 02/01/25 12:43 99 Total Intake and Output 02/01/25 02/01/25 02/02/25 15:00 23:00 07:00 Intake Total 1700 ml 1550 ml Output Total 200 ml 560 ml 1600 ml Balance -200 ml 1140 ml -50 ml medications Current Medications Medications Dose Ordered Sig/Devon Route Start Time Stop Time Status Last Admin Dose Admin Lactated Ringer's 1,000 ml @ 125 mls/hr Q8H IV 02/01/25 10:15 02/02/25 02:05 125 MLS/HR Docusate Sodium 100 mg Q12HR PO 02/01/25 22:00 Dimethicone 80 mg QID PRN PO 02/01/25 12:45 Ibuprofen 800 mg Q8HP PRN PO 02/01/25 23:59 Diphenhydramine HCl 25 mg Q4HP PRN IV 02/01/25 13:00 Ondansetron HCl 4 mg Q4HP PRN IV 02/01/25 13:00 Cefazolin Sodium 50 ml @ 100 mls/hr Q8H IV 02/01/25 19:30 02/02/25 11:59 02/02/25 03:29 100 MLS/HR Acetaminophen 1,000 mg Q8HPRN PRN IV 02/01/25 21:15 02/02/25 14:01 02/01/25 21:50 1,000 MG laboratory and microbiology Laboratory Tests 02/02/25 05:05 02/01/25 09:44 Test 02/01/25 09:44 Range/Units Serum Glucose 75 74-106 mg/dL Objective O: AFVSS Chest: heart and lung sounds normal. Abd soft, non-tender, fundus firm, BS, no rebound or guarding, Incision - dressing and incision clean, dry, intact Ext Neg Homans, Non-tender, edema Lochia - minimal Labs reviewed Assessment/Plan POD#1 s/p Repeat C/S and BTL Acute blood loss anemia, Hb 8.5 GDMA2, delivered Continue current care IV iron infusion PAIN CONTROL Plan discussed with: Patient Visit Coding OBGYN Date of Service: Feb 02, 2025 Billing Provider: GINNY SCHAEFFER DO CUSTOM MARINE CANVAS FABRICATOR Common Visit Codes: [id number] INP/OBS CARE(HIGH) GINNY SCHAEFFER DO Feb 02, 2025 09:52
[2025-02-02] MEDS: IRON SUCROSE COMPLEX 110 ML IV SCH (10:00)
[2025-02-02] MEDS ORDERED: HYDROcodone-ACET 5/325MG TAB PO PRN (13:00)
[2025-02-02] MEDS: ONDANSETRON HCL 4 MG/2 ML VIAL IV PRN (13:03)
[2025-02-02] MEDS: HYDROcodone-ACET 5/325MG TAB PO PRN (13:04)
[2025-02-02] MEDS: SIMETHICONE 80 MG CHEWABLE TABLET PO PRN (22:48)
[2025-02-03 03:21] VITALS: BP 129/79; PULSE 89; RESP 18; TEMP 98; O2SAT 98
[2025-02-03 06:45] VITALS: BP 116/75; PULSE 90; RESP 18; TEMP 98; O2SAT 95
--- NOTE | 2025-02-03 09:11 | DVHDS2 ---
Physician Discharge Progress N Final Diagnosis: Term delivered, GDMA2 s/p repeat c/Section with sterilization (BTL) Secondary Diagnosis: GDMA2 Precipitous drop in H/H, stable Operations or Procedures: Operations or Procedures Repeat C/S and BTL Commentary: Commentary Normal c/s delivery w/ unremarkable course, meeting all milestones of post op recovery Acute on chronic anemia, s/p IV iron infusion Condition on Discharge: Stable Disposition: Home Discharge Instructions: Diet: Regular Activity: Light activity Activity comment: Pelvic rest x 6 wk Follow Up/Referral: 1 to 2 wk w/ Dr Webster Medications: see eRX Follow Up Care: Discharge Statement: "Patient was advised to return to the ER or call 911 if any headaches, dizziness, shortness of breath, chest pain, abdominal pain, bleeding, fevers, or worsening of medical condition. Patient was counseled about treatment plan, medications, possible side effects, patientverbalized understanding. All questions were answered to the best of my ability. This discharge took greater then 30 minutes in planning, reviewing documentation, counseling the patient, and discussing with other team members." Visit Coding OBGYN Date of Service: Feb 03, 2025 Billing Provider: GINNY SCHAEFFER DO HEALTH FACILITIES SURVEYOR Common Visit Codes: 92405-VLC/OBS DISCH DAY <30MIN GINNY SCHAEFFER DO Feb 03, 2025 09:11
[2025-02-03] MEDS ORDERED: FERR325T24 PO ×2 (09:14)
[2025-02-03] MEDS ORDERED: FERR30CA PO ×2 (09:14)
[2025-02-03 11:00] VITALS: BP 126/81; PULSE 86; RESP 18; TEMP 98.4; O2SAT 97
== END 2025-02-03 14:47 | disposition home or self-care (01) | DRG 539 ==
LOC: LDRP 08:44 → UNDOADMOB 08:44 → INTOOBSV 10:10 → OBSVTOIN 10:10 → LDRP 10:10
PROVIDERS: ADMIT Obstetrics & Gynecology; ATTEND Obstetrics & Gynecology
PROC: 10D00Z1 Extraction of Products of Conception, Low, Open Approach (ICD-10-PCS; 2025-02-01)
PROC: 0UB70ZZ Excision of Bilateral Fallopian Tubes, Open Approach (ICD-10-PCS; principal; 2025-02-01 11:35)
DX: O34.211 Maternal care for low transverse scar from previous cesarean delivery (principal); R71.0 Precipitous drop in hematocrit; O24.424 Gestational diabetes mellitus in childbirth, insulin controlled; Z37.0 Single live birth; O36.63X0 Maternal care for excessive fetal growth, third trimester, not applicable or unspecified; Z30.2 Encounter for sterilization; Z3A.38 38 weeks gestation of pregnancy; O90.81 Anemia of the puerperium
CPT/HCPCS: 36415; 76819; 80053; 80307; 81001; 81002; 82570; 82948; 82962; 84156; 84550; 85025; 85610; 85730; 86780; 86850; 86900; 86901; 94760; 96360; 96361; 96365; 96366; G0378; J0131; J1756; J1885; J2405; J2590; J3490